=== PATIENT | female | born 1945 ===

== ENCOUNTER 2018-08-10 11:00 | Inpatient (IN) | payer OTHER ==
[2018-08-10] MEDS ORDERED: Sodium Chloride 0.9% 250 ML IV ONE (11:42)
--- NOTE | 2018-08-10 12:26 | RAD ---
Date of service: 08/10/2018 PROCEDURE: CHEST RADIOGRAPH, 1 VIEW HISTORY: chest pain COMPARISON: Chest radiographs 02/06/2017. FINDINGS: LUNGS: No interval pulmonary disease appreciated bilaterally. PLEURA: No pneumothorax or pleural fluid seen. CARDIOVASCULAR: Stable cardiomediastinal silhouette. No pulmonary vascular congestion. Aortic ectasis reiterated proven as not aneurysmal in chest CT 05/02/2018. A 4.7 cm ascending thoracic aorta is identified on prior chest CT 05/02/2018 however. OSSEOUS STRUCTURES: No significant abnormalities. VISUALIZED UPPER ABDOMEN: Normal. OTHER FINDINGS: None. IMPRESSION: No interval acute cardiopulmonary disease appreciated.
--- NOTE | 2018-08-10 12:32 | C.PDOC ---
History Of Present Illness 73 year old female, with no significant past medical history, presents to the ED after being sent by Dr. Anders for admission and further cardiac evaluation. Patient was in echo/stress when her echo reading showed aortic stenosis and d ilated aortic root with ascending aortic aneurism. Patient was about to undergo a stress test, but was advised by Dr. Anders to present to the ED for further evaluation. Patient states she has been experiencing shortness of breath, dyspnea on exertion, and chest pressure for around 6 months but did not inform her PMD until recently. Patient states she is currently asymptomatic. She denies fever, chills, nausea, vomiting. PMD: Dr. Banks Time Seen by Provider: 08/10/18 11:03 Chief Complaint (Nursing): Shortness Of Breath History Per: Patient, Family (daughter) History/Exam Limitations: no limitations Onset/Duration Of Symptoms: Days Current Symptoms Are (Timing): Better Quality: denies: "Pain" Associated Symptoms: denies: Fever, Chills Additional History Per: Patient Past Medical History Reviewed: Historical Data, Nursing Documentation, Vital Signs Vital Signs: Last Vital Signs Temp 98.8 F 08/10/18 11:09 Pulse 73 08/10/18 11:09 Resp 18 08/10/18 11:09 BP 131/88 08/10/18 11:09 Pulse Ox 98 08/10/18 11:09 - Medical History PMH: Anxiety (???), HTN, Hypercholesterolemia, Osteoporosis Surgical History: No Surg Hx Family History: States: Unknown Family Hx - Social History Hx Alcohol Use: No Hx Substance Use: No - Immunization History Hx Tetanus Toxoid Vaccination: No Hx Influenza Vaccination: Yes (08/02/2018) Hx Pneumococcal Vaccination: No Review Of Systems Constitutional: Negative for: Fever, Chills Cardiovascular: Positive for: Other (chest pressure ) Respiratory: Positive for: Shortness of Breath, SOB with Excertion Gastrointestinal: Negative for: Nausea, Vomiting Physical Exam - Physical Exam Appears: Non-toxic, No Acute Distress Skin: Warm, Dry, Pale (slight ) Head: Atraumatic, Normacephalic Eye(s): bilateral: Normal Inspection Oral Mucosa: Moist Neck: Supple Chest: Symmetrical, No Deformity, No Tenderness Cardiovascular: Rhythm Regular, No Murmur Respiratory: Normal Breath Sounds, No Rales, No Rhonchi, No Wheezing Gastrointestinal/Abdominal: Soft, No Tenderness, No Guarding, No Rebound, Other (obese) Extremity: Normal ROM, Capillary Refill (less than 2 seconds ), Other (pitting edema to bilateral lower extremities ) Pulses: Left Dorsalis Pedis: Normal, Right Dorsalis Pedis: Normal Neurological/Psych: Oriented x3, Normal Speech, Normal Cognition ED Course And Treatment - Laboratory Results Result Diagrams: 08/10/18 12:29 08/10/18 12:29 O2 Sat by Pulse Oximetry: 98 (on RA) Pulse Ox Interpretation: Normal Medical Decision Making Medical Decision Making: Impression: 73 year old female with c/o shortness of breath, dyspnea on exertion, chest pressure Plan: * bloodwork * CXR * EKG * CT Angio Chest * IV Fluids * reassess and disposition Progress: Bloodwork, CXR, CT Angio Chest, EKG ordered and reviewed. IV Fluids given. Spoke with Dr. Bloom, radiology, patient had a CTA in April 2018, wich showed the ascending aneurysm. Disposition Discussed With : Ezequiel Anders Doctor Will See Patient In The: Hospital Counseled Patient/Family Regarding: Studies Performed, Diagnosis - Disposition Disposition: HOSPITALIZED Disposition Time: 13:01 Condition: GUARDED Forms: [employer] (Lao) - POA Present On Arrival: None - Clinical Impression Clinical Impression: SOB (shortness of breath), Aortic stenosis, Ascending aortic aneurysm - Scribe Statement The provider has reviewed the documentation as recorded by the Scribe (Klarissa Brownlee) Provider Attestation: All medical record entries made by the Scribe were at my direction and personally dictated by me. I have reviewed the chart and agree that the record accurately reflects my personal performance of the history, physical exam, medical decision making, and the department course for this patient. I have also personally directed, reviewed, and agree with the discharge instructions and disposition. Decision To Admit - Pt Status Changed To: Hospital Disposition Of: Inpatient - Admit Certification Admit to Inpatient:: After my assessment, the patient will require hospitalization for at least two midnights. This is because of the severity of symptoms shown, intensity of services needed, and/or the medical risk in this patient being treated as an outpatient. - InPatient: Physician Admission Certification: I certify that this patient requires 2 or more midnights of care for the following reason:: YOU, SOB, AA - . Bed Request Type: Telemetry Patient Diagnosis: SOB (shortness of breath), Aortic stenosis, Ascending aortic aneurysm
[2018-08-10 12:33] LABS: BASO % 0.5 % (0.0-2.0); EOS # 0.1 K/uL (0.0-0.7); EOS % 1.1 % (0.0-4.0); HEMOGLOBIN 13.5 g/dL (11.0-16.0); LYMPH # 2.1 K/uL (1.0-4.3); MEAN CELL VOLUME 88.6 fL (81.0-99.0); MEAN CORPUSCULAR HEMOGLOBIN 30.4 pg (27.0-31.0); MEAN CORPUSCULAR HGB CONC 34.3 g/dL (33.0-37.0); MEAN PLATELET VOLUME 7.6 fL (7.2-11.7); MONO # 0.5 K/uL (0.0-0.8); MONO % 5.4 % (0.0-10.0); NEUT # 5.9 K/uL (1.8-7.0); RBC 4.45 Mil/uL (3.80-5.20); RED CELL DISTRIBUTION WIDTH 13.1 % (11.5-14.5); WHITE BLOOD COUNT 8.6 K/uL (4.8-10.8)
[2018-08-10 12:41] LABS: PROTHROMBIN TIME 11.4 SECONDS (9.7-12.2)
[2018-08-10 12:50] LABS: ALB/GLOB RATIO 1.2 (1.0-2.1)
[2018-08-10 13:04] LABS: TROPONIN I 0.014 ng/mL (0.00-0.120)
--- NOTE | 2018-08-10 19:11 | CP.PCM.HP ---
History of Present Illness - History of Present Illness History of Present Illness: Willy Benavideszulemayas PGY-1, H&P for Hospitalist CC: dyspnea on exertion, chest pressure This is a 73 year old Guatemalan-speaking female with PMH of dyslipidemia, osteoporosis, hypoglycemic episodes who was sent to the hospital from her card iologist's office for evaluation of aortic stenosis and ascending aortic aneurysm noted on echocardiogram. Pt reports dyspnea and chest pressure on exertion, worsening over the past 6 months. Chest pressure is described as a feeling of someone pushing on her midchest; no radiation, no chest pain, no neck pain. Symptoms are provoked by walking (sometimes less than one block), and alleviated by rest. Symptoms worsened last week, when she had a near-syncopal episode decreased as dizziness. Pt did not fall and hid not suffer any trauma at that time. She denies headache, fever, chills, paresthesias, blurry vision, tearing or ripping quality of chest pain, palpitations, abdominal pain, n/v/d, urinary complaints. She also endorses a history of unexplained bruising for as long as she can remember. Pt's sister in law, Luna Bermudez, is an central sterile tech in [place] and was informed of pt's admission . PMD: Darren Cardio: [place] PMH: dyslipidemia, osteoporosis, hypoglycemic episodes PSH: bunionectomy 2016, 2017, right breast cyst biopsy 2007 (benign) FHx: (+) history multiple family members with sudden cardiac (ages 50s- 60s) on Mother's side; Father of [place] at age 58, HTN, DM. No family history of cancers. Meds: Atorvastatin 10 mg daily, Indapamide 1.25 mg daily, Ralaxifine 60 mg daily, Fenofibrate 160 mg daily, Calcium, Vitamin D Allx: Seafood (shellfish) Social Hx: remote history of smoking at age 40 (2-3 cigs/day); social etoh use; no illicit drug use. Born in [place] immigrated to [facility] [place]. Preventative: Colonoscopy 3 years ago normal; Mammogram in february 2018 normal; papsmear 5 years ago normal Present on Admission - Present on Admission Any Indicators Present on Admission: No Review of Systems - Review of Systems All systems: reviewed and no additional remarkable complaints except (as per HPI) Past Patient History - Infectious Disease Hx of Infectious Diseases: None - Past Medical History & Family History Past Medical History?: Yes - Past Social History Smoking Status: Never Smoked - CARDIAC Hx Cardiac Disorders: Yes Hx Hypercholesterolemia: Yes Hx Hypertension: Yes - PULMONARY Hx Respiratory Disorders: No - NEUROLOGICAL Hx Neurological Disorder: Yes Hx Dizziness: Yes (last week) - HEENT Hx HEENT Problems: Yes Hx Cataracts: Yes Other/Comment: wear glasses for reading - RENAL Hx Chronic Kidney Disease: No - ENDOCRINE/METABOLIC Hx Endocrine Disorders: No - HEMATOLOGICAL/ONCOLOGICAL Hx Blood Disorders: No - INTEGUMENTARY Hx Dermatological Problems: No - MUSCULOSKELETAL/RHEUMATOLOGICAL Hx Falls: No - GASTROINTESTINAL Hx Gastrointestinal Disorders: No - GENITOURINARY/GYNECOLOGICAL Hx Genitourinary Disorders: No - PSYCHIATRIC Hx Substance Use: No - SURGICAL HISTORY Hx Surgeries: Yes Other/Comment: bilateral foot surgery. - ANESTHESIA Hx Anesthesia: Yes Hx Anesthesia Reactions: No Hx Malignant Hyperthermia: No Meds Allergies/Adverse Reactions: Allergies Allergy/AdvReac Type Severity Reaction Status Date / Time shellfish derived Allergy Verified 08/10/18 13:30 Physical Exam - Constitutional Appears: Non-toxic, No Acute Distress - Head Exam Head Exam: NORMAL INSPECTION, NORMOCEPHALIC - Eye Exam Eye Exam: EOMI, Normal appearance - ENT Exam ENT Exam: Mucous Membranes Moist - Neck Exam Neck exam: Positive for: Normal Inspection - Respiratory Exam Respiratory Exam: Clear to Auscultation Bilateral, NORMAL BREATHING PATTERN. absent: Decreased Breath Sounds, Rales, Rhonchi, Wheezes, Respiratory Distress - Cardiovascular Exam Cardiovascular Exam: REGULAR RHYTHM, +S1, +S2, Systolic Murmur ((+) 2/6 systolic crescendo-decrescendo murmur; radiating to the carotid) - GI/Abdominal Exam GI & Abdominal Exam: Normal Bowel Sounds, Soft. absent: Distended, Firm, Guarding, Rebound, Rigid, Tenderness - Extremities Exam Extremities exam: Positive for: normal inspection. Negative for: calf tenderness, pedal edema - Back Exam Back exam: NORMAL INSPECTION - Neurological Exam Neurological exam: Alert, Oriented x3 - Psychiatric Exam Psychiatric exam: Normal Affect, Normal Mood - Skin Skin Exam: Dry, Normal Color, Warm Additional comments: (+) healing ecchymosis to right forearm; nontender Results - Vital Signs Recent Vital Signs: Last Vital Signs Temp 98 F 08/10/18 16:46 Pulse 77 08/10/18 16:46 Resp 20 08/10/18 16:46 BP 128/69 08/10/18 16:46 Pulse Ox 97 08/10/18 16:46 - Labs Result Diagrams: 08/10/18 12:29 08/10/18 12:29 Labs: Laboratory Results - last 24 hr 08/10/18 08/10/18 08/10/18 12:29 12:29 12:29 WBC 8.6 RBC 4.45 Hgb 13.5 Hct 39.5 MCV 88.6 MCH 30.4 MCHC 34.3 RDW 13.1 Plt Count 309 MPV 7.6 Neut % (Auto) 69.0 Lymph % (Auto) 24.0 Mitchell % (Auto) 5.4 Eos % (Auto) 1.1 Baso % (Auto) 0.5 Neut # (Auto) 5.9 Lymph # (Auto) 2.1 Mitchell # (Auto) 0.5 Eos # (Auto) 0.1 Baso # (Auto) 0.0 PT 11.4 INR 1.0 APTT 35 H Sodium 143 Potassium 3.7 Chloride 103 Carbon Dioxide 28 Anion Gap 15 BUN 17 Creatinine 1.1 Est GFR ( Amer) 59 Est GFR (Non-Af Amer) 48 Random Glucose 116 H Calcium 10.0 Total Bilirubin 0.7 AST 18 ALT 24 Alkaline Phosphatase 68 Troponin I 0.0140 NT-Pro-B Natriuret Pep 457 Total Protein 7.5 Albumin 4.0 Globulin 3.5 Albumin/Globulin Ratio 1.2 Assessment & Plan - Assessment and Plan (Free Text) Assessment: This is a 73 year old Guatemalan-speaking female with PMH of dyslipidemia, osteoporosis, hypoglycemic episodes who was sent to the hospital from her brake drum molder's office for evaluation of aortic stenosis and ascending aortic aneurysm noted on echocardiogram. Pt reports dyspnea and chest pressure on exertion, worsening over the past 6 months. C Plan: Near-syncopal episode with chest pressure and dyspnea on exertion; likely due to Aortic stenosis -Dr. anders noted aortic stenosis on outpatient echocardiogram -cxr shows no interval acute cardiopulmonary disease -troponin x1 is normal -bnp is 457 -f/u orthostatic BPs -Cardiology, Dr. Anders, consulted Ascending aortic aneurysm -Dr. anders noted 4.5cm by 4.7cm ascending aortic aneursym noted on outpatient echocardiogram -chest ct 04/2018 shows 4.5cm by 4.7cm ascending aortic aneursym -pt is hemodynamically stable -BPs have been 120s-130s/60s-80s -f/u PT/PTT/INR -f/u Dr. chago acuña Osteoporosis - continue home calcium, vitamin D, raloxifene - calcium is 10.0 on admission - f/u vitamin D 25-oh Hx of dyslipidemia -will start crestor 20 mg PO QHS -f/u lipid panel Hx of hypoglycemia -glucose is 116 on admission -accucheck ACHS -f/u HgbA1c, c-peptide, TSH, T4 PPX/Diet - protonix 20 mg PO daily for GI - lovenox 40 mg SC daily for VTE ppx - HHD Case was reviewed and discussed with attending, Dr. Margarita Wells PGY-1
[2018-08-11 07:10] LABS: BASO % 0.4 % (0.0-2.0); EOS # 0.1 K/uL (0.0-0.7); EOS % 1.4 % (0.0-4.0); HEMOGLOBIN 12.8 g/dL (11.0-16.0); LYMPH # 2.2 K/uL (1.0-4.3); LYMPH % 33.5 % (20.0-40.0); MEAN CELL VOLUME 89.3 fL (81.0-99.0); MEAN CORPUSCULAR HEMOGLOBIN 29.9 pg (27.0-31.0); MEAN CORPUSCULAR HGB CONC 33.5 g/dL (33.0-37.0); MEAN PLATELET VOLUME 7.9 fL (7.2-11.7); MONO # 0.5 K/uL (0.0-0.8); MONO % 7.5 % (0.0-10.0); NEUT # 3.8 K/uL (1.8-7.0); NEUT % 57.2 % (50.0-75.0); RBC 4.26 Mil/uL (3.80-5.20); RED CELL DISTRIBUTION WIDTH 13.3 % (11.5-14.5); WHITE BLOOD COUNT 6.7 K/uL (4.8-10.8)
[2018-08-11 07:19] LABS: INR 1.1; PROTHROMBIN TIME 11.9 SECONDS (9.7-12.2)
[2018-08-11 07:53] LABS: ALB/GLOB RATIO 1.1 (1.0-2.1); ALBUMIN 3.5 g/dL (3.5-5.0); CALCIUM 9.4 mg/dl (8.6-10.4)
[2018-08-11] MEDS ORDERED: INDAPAMIDE 1.25 MG PO SCH (10:00)
[2018-08-11] MEDS: Pantoprazole 20 mg EC Tab PO SCH (10:18)
[2018-08-11] MEDS: Enoxaparin 40 mg Syringe SC SCH (10:18)
--- NOTE | 2018-08-11 19:09 | CP.PCM.PN ---
Subjective - Date & Time of Evaluation Date of Evaluation: 08/11/18 Time of Evaluation: 10:00 - Subjective Subjective: PGY2 Medicine Note for Dr. Valencia Patient seen and examined this morning at bedside. No acute events overnight. Patient is resting comfortably in bed without complaints. She reports not getting up and walking for fear for becoming lightheaded or dizzy. Patient is tolerating her diet and denies any pain. Patient has no other complaints at this time. Objective - Vital Signs/Intake and Output Vital Signs (last 24 hours): Temp Pulse Resp BP Pulse Ox 97.6 F 72 20 105/64 96 08/11/18 15:16 08/11/18 15:16 08/11/18 15:16 08/11/18 15:16 08/11/18 15:16 - Medications Medications: Current Medications Diphenhydramine HCl (Benadryl) 50 mg PO ONCE ONE Stop: 08/12/18 09:01 Enoxaparin Sodium (Lovenox) 40 mg SC DAILY [facility] Last Admin: 08/11/18 10:18 Dose: 40 mg Fenofibrate (Tricor) 145 mg PO DAILY [facility] Last Admin: 08/11/18 10:18 Dose: 145 mg Home Med (Indapamide [Lozol]) 1.25 mg PO DAILY [facility] Pantoprazole Sodium (Protonix Ec Tab) 20 mg PO DAILY [facility] Last Admin: 08/11/18 10:18 Dose: 20 mg Prednisone (Prednisone Tab) 50 mg PO ONCE ONE Stop: 08/11/18 22:01 Prednisone (Prednisone Tab) 50 mg PO ONCE ONE Stop: 08/12/18 08:01 Prednisone (Prednisone Tab) 50 mg PO ONCE ONE Stop: 08/12/18 02:01 Raloxifene HCl (Evista) 60 mg PO DAILY [facility] Last Admin: 08/11/18 10:18 Dose: 60 mg Rosuvastatin Calcium (Crestor) 20 mg PO HS [facility] Last Admin: 08/10/18 21:08 Dose: 20 mg - Labs Labs: 08/11/18 07:03 08/11/18 07:03 PT 11.9 SECONDS (9.7-12.2) 08/11/18 07:03 INR 1.1 08/11/18 07:03 APTT 30 SECONDS (21-34) D 08/11/18 07:03 - Constitutional Appears: Non-toxic, No Acute Distress - Head Exam Head Exam: ATRAUMATIC, NORMOCEPHALIC - Eye Exam Eye Exam: Normal appearance - ENT Exam ENT Exam: Mucous Membranes Moist - Neck Exam Neck Exam: Full ROM - Respiratory Exam Respiratory Exam: NORMAL BREATHING PATTERN. absent: Accessory Muscle Use, Rales, Rhonchi, Wheezes, Respiratory Distress - Cardiovascular Exam Cardiovascular Exam: REGULAR RHYTHM, +S1, Murmur (systolic murmur - crescendo-decrescendo, radiation to carotids) - GI/Abdominal Exam GI & Abdominal Exam: Soft. absent: Distended, Firm, Guarding, Rigid, Tenderness, Rebound - Extremities Exam Extremities Exam: absent: Calf Tenderness, Pedal Edema - Neurological Exam Neurological Exam: Alert, Awake, Oriented x3 - Psychiatric Exam Psychiatric exam: Normal Affect, Normal Mood - Skin Skin Exam: Dry, Warm Assessment and Plan - Assessment and Plan (Free Text) Plan: Near-syncopal episode with chest pressure and dyspnea on exertion; likely due to Aortic stenosis - Cardiology, Dr. Longoria, consulted - Dr. longoria noted aortic stenosis on outpatient echocardiogram - CXR shows no interval acute cardiopulmonary disease - troponin x1 is normal - bnp is 457 Ascending aortic aneurysm - Dr. longoria noted ascending aortic aneursym noted on outpatient echocardiogram * Chest CT 04/2018 shows 4.5cm by 4.7cm ascending aortic aneursym * Dr. Longoria requesting repeat CT Chest angiography to evaluate ascending aortic aneursym. * Patient will needed to be pre-treated for CT angio due to iodine allergy. Patient will be treated per Radiology protocol: * Prednisone 50mg PO 13 hours prior, 7 hours prior and 1 hour prior * Benadryl 50mg PO or IM [address] * CT scheduled for 10am - pt is hemodynamically stable -BPs have been 120s-100s/60s-80s -f/u Dr. longoria recs Osteoporosis - continue home calcium, vitamin D, raloxifene - calcium is 10.0 on admission * 9.4 today - Vitamin D (08/11): 46.5 Hx of dyslipidemia - crestor 20 mg PO QHS --> decrease dose due to CKD stage 3 - continue home Fenofibrate 145mg PO daily - lipid panel (08/11): * LDL 86 * HDL 36 * Trigly 113 Hx of hypoglycemia - glucose is 116 on admission - accucheck ACHS - Hgb A1c, c-peptide pending - TSH 1.72 - free T4 1.23 PPX/Diet - protonix 20 mg PO daily for GI - lovenox 40 mg SC daily for VTE ppx - HHD Case discussed with Dr. Annie Augustin Emelia PGY2
--- NOTE | 2018-08-11 22:37 | CP.PCM.CON ---
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 Pt reports dyspnea and chest pressure on exertion, worsening over the past 6 months. Chest pressure is described as a feeling of someone pushing on her midchest; no radiation, no chest pain, no neck pain. Symptoms are provoked by walking (sometimes less than one block), and alleviated by rest. Symptoms worsened last week, when she had a near-syncopal episode decreased as dizziness. Pt did not fall and hid not suffer any trauma at that time. She denies headache, fever, chills, paresthesias, blurry vision, tearing or ripping quality of chest pain, palpitations, abdominal pain, n/v/d, urinary complaints. She also endorses a history of unexplained bruising for as long as she can remember. Pt's sister in law, Luna Bermudez, is an head bander and liner operator in [place] and was informed of pt's admission . PMD: Darren PMH: dyslipidemia, osteoporosis, hypoglycemic episodes PSH: bunionectomy 2016, 2017, right breast cyst biopsy 2007 (benign) FHx: (+) history multiple family members with sudden cardiac (ages 50s-60 s) on Mother's side; Father of AL at age 58, HTN, DM. No family history of cancers. Meds: Atorvastatin 10 mg daily, Indapamide 1.25 mg daily, Ralaxifine 60 mg daily, Fenofibrate 160 mg daily, Calcium, Vitamin D Allx: Seafood (shellfish) Social Hx: remote history of smoking at age 40 (2-3 cigs/day); social etoh use; no illicit drug use. Born in [place] immigrated to [facility] 2001. Preventative: Colonoscopy 3 years ago normal; Mammogram in february 2018 normal; papsmear 5 years ago normal Present on Admission - Present on Admission Any Indicators Present on Admission: No Review of Systems - Review of Systems All systems: reviewed and no additional remarkable complaints except (as per HPI) Past Patient History - Infectious Disease Hx of Infectious Diseases: None - Past Medical History & Family History Past Medical History?: Yes - Past Social History Smoking Status: Never Smoked - CARDIAC Hx Cardiac Disorders: Yes Hx Hypercholesterolemia: Yes Hx Hypertension: Yes - PULMONARY Hx Respiratory Disorders: No - NEUROLOGICAL Hx Neurological Disorder: Yes Hx Dizziness: Yes (last week) - HEENT Hx HEENT Problems: Yes Hx Cataracts: Yes Other/Comment: wear glasses for reading - RENAL Hx Chronic Kidney Disease: No - ENDOCRINE/METABOLIC Hx Endocrine Disorders: No - HEMATOLOGICAL/ONCOLOGICAL Hx Blood Disorders: No - INTEGUMENTARY Hx Dermatological Problems: No - MUSCULOSKELETAL/RHEUMATOLOGICAL Hx Falls: No - GASTROINTESTINAL Hx Gastrointestinal Disorders: No - GENITOURINARY/GYNECOLOGICAL Hx Genitourinary Disorders: No - PSYCHIATRIC Hx Substance Use: No - SURGICAL HISTORY Hx Surgeries: Yes Other/Comment: bilateral foot surgery. - ANESTHESIA Hx Anesthesia: Yes Hx Anesthesia Reactions: No Hx Malignant Hyperthermia: No Meds Allergies/Adverse Reactions: Allergies Allergy/AdvReac Type Severity Reaction Status Date / Time shellfish derived Allergy Verified 08/10/18 13:30 Physical Exam - Constitutional Appears: Non-toxic, No Acute Distress - Head Exam Head Exam: NORMAL INSPECTION, NORMOCEPHALIC - Eye Exam Eye Exam: EOMI, Normal appearance - ENT Exam ENT Exam: Mucous Membranes Moist - Neck Exam Neck exam: Positive for: Normal Inspection - Respiratory Exam Respiratory Exam: Clear to Auscultation Bilateral, NORMAL BREATHING PATTERN. absent: Decreased Breath Sounds, Rales, Rhonchi, Wheezes, Respiratory Distress - Cardiovascular Exam Cardiovascular Exam: REGULAR RHYTHM, +S1, +S2, Systolic Murmur ((+) 2/6 systolic crescendo-decrescendo murmur; radiating to the carotid) - GI/Abdominal Exam GI & Abdominal Exam: Normal Bowel Sounds, Soft. absent: Distended, Firm, Guarding, Rebound, Rigid, Tenderness - Extremities Exam Extremities exam: Positive for: normal inspection. Negative for: calf tenderness, pedal edema - Back Exam Back exam: NORMAL INSPECTION - Neurological Exam Neurological exam: Alert, Oriented x3 - Psychiatric Exam Psychiatric exam: Normal Affect, Normal Mood - Skin Skin Exam: Dry, Normal Color, Warm Additional comments: (+) healing ecchymosis to right forearm; nontender Results - Vital Signs Recent Vital Signs: Last Vital Signs Temp 98 F 08/10/18 16:46 Pulse 77 08/10/18 16:46 Resp 20 08/10/18 16:46 BP 128/69 08/10/18 16:46 Pulse Ox 97 08/10/18 16:46 - Labs Result Diagrams: 08/10/18 12:29 08/10/18 12:29 Labs: Laboratory Results - last 24 hr 08/10/18 08/10/18 08/10/18 12:29 12:29 12:29 WBC 8.6 RBC 4.45 Hgb 13.5 Hct 39.5 MCV 88.6 MCH 30.4 MCHC 34.3 RDW 13.1 Plt Count 309 MPV 7.6 Neut % (Auto) 69.0 Lymph % (Auto) 24.0 Bleckley % (Auto) 5.4 Eos % (Auto) 1.1 Baso % (Auto) 0.5 Neut # (Auto) 5.9 Lymph # (Auto) 2.1 Bleckley # (Auto) 0.5 Eos # (Auto) 0.1 Baso # (Auto) 0.0 PT 11.4 INR 1.0 APTT 35 H Sodium 143 Potassium 3.7 Chloride 103 Carbon Dioxide 28 Anion Gap 15 BUN 17 Creatinine 1.1 Est GFR ( Amer) 59 Est GFR (Non-Af Amer) 48 Random Glucose 116 H Calcium 10.0 Total Bilirubin 0.7 AST 18 ALT 24 Alkaline Phosphatase 68 Troponin I 0.0140 NT-Pro-B Natriuret Pep 457 Total Protein 7.5 Albumin 4.0 Globulin 3.5 Albumin/Globulin Ratio 1.2 Assessment & Plan - Assessment and Plan (Free Text) Assessment: This is a 73 year old Guinean-speaking female with PMH of dyslipidemia, osteoporosis, hypoglycemic episodes who was 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 Pt reports dyspnea and chest pressure on exertion, worsening over the past 6 months. C Plan: Near-syncopal episode with chest pressure and dyspnea on exertion; likely due to Aortic stenosis -Dr. longoria noted aortic stenosis on outpatient echocardiogram -cxr shows no interval acute cardiopulmonary disease -troponin x1 is normal -bnp is 457 -f/u orthostatic BPs -Cardiology, Dr. Longoria, consulted Ascending aortic aneurysm -Dr. longoria noted 4.5cm by 4.7cm ascending aortic aneursym noted on outpatient echocardiogram -chest ct 04/2018 shows 4.5cm by 4.7cm ascending aortic aneursym -pt is hemodynamically stable -BPs have been 120s-130s/60s-80s -f/u PT/PTT/INR -f/u Dr. von acuña Osteoporosis - continue home calcium, vitamin D, raloxifene - calcium is 10.0 on admission - f/u vitamin D 25-oh Hx of dyslipidemia -will start crestor 20 mg PO QHS -f/u lipid panel Hx of hypoglycemia -glucose is 116 on admission -accucheck ACHS -f/u HgbA1c, c-peptide, TSH, T4 PPX/Diet - protonix 20 mg PO daily for GI - lovenox 40 mg SC daily for VTE ppx - HHD Patient for Cardiac Cath Monday Plan for further mgt after CT and Cath reports available Past Patient History - Infectious Disease Hx of Infectious Diseases: None - Past Medical History & Family History Past Medical History?: Yes - Past Social History Smoking Status: Never Smoked - CARDIAC Hx Cardiac Disorders: Yes Hx Hypercholesterolemia: Yes Hx Hypertension: Yes - PULMONARY Hx Respiratory Disorders: No - NEUROLOGICAL Hx Neurological Disorder: Yes Hx Dizziness: Yes (last week) - HEENT Hx HEENT Problems: Yes Hx Cataracts: Yes Other/Comment: wear glasses for reading - RENAL Hx Chronic Kidney Disease: No - ENDOCRINE/METABOLIC Hx Endocrine Disorders: No - HEMATOLOGICAL/ONCOLOGICAL Hx Blood Disorders: No - INTEGUMENTARY Hx Dermatological Problems: No - MUSCULOSKELETAL/RHEUMATOLOGICAL Hx Falls: No - GASTROINTESTINAL Hx Gastrointestinal Disorders: No - GENITOURINARY/GYNECOLOGICAL Hx Genitourinary Disorders: No - PSYCHIATRIC Hx Substance Use: No - SURGICAL HISTORY Hx Surgeries: Yes Other/Comment: bilateral foot surgery. - ANESTHESIA Hx Anesthesia: Yes Hx Anesthesia Reactions: No Hx Malignant Hyperthermia: No Meds Allergies/Adverse Reactions: Allergies Allergy/AdvReac Type Severity Reaction Status Date / Time shellfish derived Allergy Verified 08/10/18 13:30 - Medications Medications: Current Medications Diphenhydramine HCl (Benadryl) 50 mg PO ONCE ONE Stop: 08/12/18 09:01 Enoxaparin Sodium (Lovenox) 40 mg SC DAILY [facility] Last Admin: 08/11/18 10:18 Dose: 40 mg Fenofibrate (Tricor) 145 mg PO DAILY [facility] Last Admin: 08/11/18 10:18 Dose: 145 mg Home Med (Indapamide [Lozol]) 1.25 mg PO DAILY [facility] Pantoprazole Sodium (Protonix Ec Tab) 20 mg PO DAILY [facility] Last Admin: 08/11/18 10:18 Dose: 20 mg Prednisone (Prednisone Tab) 50 mg PO ONCE ONE Stop: 08/12/18 09:01 Prednisone (Prednisone Tab) 50 mg PO ONCE ONE Stop: 08/12/18 03:01 Raloxifene HCl (Evista) 60 mg PO DAILY [facility] Last Admin: 08/11/18 10:18 Dose: 60 mg Rosuvastatin Calcium (Crestor) 5 mg PO [facility] Results - Vital Signs Recent Vital Signs: Last Vital Signs Temp 97.6 F 08/11/18 15:16 Pulse 72 08/11/18 15:16 Resp 20 08/11/18 15:16 BP 105/64 08/11/18 15:16 Pulse Ox 96 08/11/18 15:16 - Labs Result Diagrams: 08/11/18 07:03 08/11/18 07:03 Labs: Laboratory Results - last 24 hr 08/11/18 08/11/18 08/11/18 06:15 07:03 07:03 WBC 6.7 RBC 4.26 Hgb 12.8 Hct 38.1 MCV 89.3 MCH 29.9 MCHC 33.5 RDW 13.3 Plt Count 308 MPV 7.9 Neut % (Auto) 57.2 Lymph % (Auto) 33.5 Bleckley % (Auto) 7.5 Eos % (Auto) 1.4 Baso % (Auto) 0.4 Neut # (Auto) 3.8 Lymph # (Auto) 2.2 Bleckley # (Auto) 0.5 Eos # (Auto) 0.1 Baso # (Auto) 0.0 PT 11.9 INR 1.1 APTT 30 D Sodium Potassium Chloride Carbon Dioxide Anion Gap BUN Creatinine Est GFR ( Amer) Est GFR (Non-Af Amer) POC Glucose (mg/dL) 118 H Random Glucose Calcium Total Bilirubin AST ALT Alkaline Phosphatase Total Protein Albumin Globulin Albumin/Globulin Ratio Triglycerides Cholesterol LDL Cholesterol Direct HDL Cholesterol 25-OH Vitamin D Total Free T4 TSH 3rd Generation 08/11/18 08/11/18 08/11/18 07:03 07:03 07:03 WBC RBC Hgb Hct MCV MCH MCHC RDW Plt Count MPV Neut % (Auto) Lymph % (Auto) Bleckley % (Auto) Eos % (Auto) Baso % (Auto) Neut # (Auto) Lymph # (Auto) Bleckley # (Auto) Eos # (Auto) Baso # (Auto) PT INR APTT Sodium 144 Potassium 3.6 Chloride 106 Carbon Dioxide 24 Anion Gap 17 BUN 19 H Creatinine 1.1 Est GFR ( Amer) 59 Est GFR (Non-Af Amer) 48 POC Glucose (mg/dL) Random Glucose 115 H Calcium 9.4 Total Bilirubin 0.6 AST 17 ALT 16 Alkaline Phosphatase 59 Total Protein 6.7 Albumin 3.5 Globulin 3.2 Albumin/Globulin Ratio 1.1 Triglycerides 113 Cholesterol 146 LDL Cholesterol Direct 86 HDL Cholesterol 36 25-OH Vitamin D Total 46.5 Free T4 1.23 TSH 3rd Generation 1.72 08/11/18 08/11/18 16:54 21:07 WBC RBC Hgb Hct MCV MCH MCHC RDW Plt Count MPV Neut % (Auto) Lymph % (Auto) Bleckley % (Auto) Eos % (Auto) Baso % (Auto) Neut # (Auto) Lymph # (Auto) Bleckley # (Auto) Eos # (Auto) Baso # (Auto) PT INR APTT Sodium Potassium Chloride Carbon Dioxide Anion Gap BUN Creatinine Est GFR ( Amer) Est GFR (Non-Af Amer) POC Glucose (mg/dL) 103 98 Random Glucose Calcium Total Bilirubin AST ALT Alkaline Phosphatase Total Protein Albumin Globulin Albumin/Globulin Ratio Triglycerides Cholesterol LDL Cholesterol Direct HDL Cholesterol 25-OH Vitamin D Total Free T4 TSH 3rd Generation
[2018-08-12 07:30] LABS: BASO % 0.1 % (0.0-2.0); HEMOGLOBIN 12.7 g/dL (11.0-16.0); LYMPH # 0.7 K/uL (1.0-4.3); LYMPH % 9.9 % (20.0-40.0); MEAN CELL VOLUME 88.2 fL (81.0-99.0); MEAN PLATELET VOLUME 8.2 fL (7.2-11.7); MONO # 0.1 K/uL (0.0-0.8); MONO % 1.2 % (0.0-10.0); NEUT # 6.1 K/uL (1.8-7.0); NEUT % 88.8 % (50.0-75.0); PLATELET COUNT 314 K/uL (130-400); RBC 4.24 Mil/uL (3.80-5.20); RED CELL DISTRIBUTION WIDTH 13.1 % (11.5-14.5); WHITE BLOOD COUNT 6.8 K/uL (4.8-10.8)
[2018-08-12 07:45] LABS: ALB/GLOB RATIO 1.1 (1.0-2.1); ALBUMIN 3.5 g/dL (3.5-5.0); CALCIUM 9.4 mg/dl (8.6-10.4)
[2018-08-12 09:22] LABS: BANDS 1 % (0-2); LYMPHOCYTE 12 % (20-40); MONOCYTE 1 % (0-10); NEUTROPHIL 86 % (50-75); TOTAL CELLS COUNTED 100
[2018-08-12 09:23] LABS: ANISOCYTOSIS SLIGHT; PLATELET ESTIMATE NORMAL (NORMAL)
[2018-08-12 09:24] LABS: LARGE PLATELETS PRESENT
[2018-08-12] MEDS ORDERED: Iodixanol 320 MG/ML 100 ML BOTTLE IV ONE (09:48)
[2018-08-12] MEDS: Enoxaparin 40 mg Syringe SC SCH (09:59)
[2018-08-12] MEDS: Pantoprazole 20 mg EC Tab PO SCH (09:59)
--- NOTE | 2018-08-12 13:44 | CT ---
PROCEDURE: CT Angiography Chest, Abdomen and Pelvis with and without intravenous contrast HISTORY: aortic aneurysm COMPARISON: None. TECHNIQUE: Contiguous axial images of the chest, abdomen and pelvis were obtained in the phase of aortic enhancement. A noncontrast enhanced CT of the chest was also obtained to evaluate for possible intramural thrombus. Coronal and sagittal reformats were generated. IV dose administered: 100 cc Visipaque Radiation dose: Total exam DLP = 680.88 mGy-cm. This CT exam was performed using one or more of the following dose reduction techniques: Automated exposure control, adjustment of the mA and/or kV according to patient size, and/or use of iterative reconstruction technique.. FINDINGS: CT ANGIOGRAPHY OF THE CHEST WITH & WITHOUT CONTRAST: AORTA (CHEST AND ABDOMEN): Th there is mild aneurysmal dilatation of the ascending thoracic aorta which measures of over 4 point 2 cm in greatest diameter. Descending thoracic aorta measures approximately 2.2 cm.. The the no evidence of dissection or upper. Pulmonary trunk measures approximately 2.3 cm. No evidence of large central pulmonary embolus. The abdominal aorta are unremarkable, without aneurysm, dissection or rupture. No intramural thrombus identified in the thoracic aorta on the non-contrast ct of the chest. The. There is a variant of the celiac axis with apparent separate origins of the common hepatic, left gastric and splenic arteries.. The superior, superior mesenteric artery, inferior mesenteric artery widely patent. Some minor calcified plaque changes seen along the origin of the right renal artery, left renal artery and extending along the inferior abdominal aorta. The renal arteries are widely patent. The visualized proximal pelvic arteries appear patent. LUNGS: Again noted is a small 7 mm ground-glass nodule left lung apex. Mild passive/dependent type atelectasis both posterior lower lung zones. MEDIASTINUM: Heart size within range of normal. No significant pericardial effusion. See above discussion for additional findings regarding the great vessels including the aorta and pulmonary arteries.. LYMPH NODES: Few small nonspecific mediastinal lymph nodes. Central airways midline and patent. There are no large central endoluminal lesions. PLEURA: Unremarkable. No pneumothorax. No pleural fluid. BONES: Moderate multilevel spondylosis of the thoracic spine. No acute compression fractures. OTHER FINDINGS: None. CT ANGIOGRAPHY OF THE ABDOMEN AND PELVIS WITH CONTRAST: LIVER: Unremarkable. No gross lesion or ductal dilatation. GALLBLADDER AND BILE DUCTS: Unremarkable. PANCREAS: Unremarkable. No gross lesion or ductal dilatation. SPLEEN: Unremarkable. ADRENALS: There is a left adrenal mass which measures approximately 2.9 x 1.9 cm and exhibits Hounsfield units in the upper 20s ranging up to the mid mid 40s. Hounsfield units are not consistent with adenoma and therefore follow-up MRI of the adrenal glands recommended for further evaluation. KIDNEYS AND URETERS: Unremarkable. No hydronephrosis. No solid mass. VASCULATURE: See above discussion for additional details. No aortic abdominal aneurysm. STOMACH AND BOWEL: Small to medium size hiatal hernia. Stomach is incompletely distended with mild thick-walled appearance. Visualized loops of small bowel exhibit normal contour and caliber. No evidence of acute mechanical small bowel obstruction. Stool and air seen throughout the large bowel APPENDIX: Normal appendix. PERITONEUM: Unremarkable. No free fluid. No free air. LYMPH NODES: Unremarkable. No enlarged lymph nodes. BLADDER: Not visualized REPRODUCTIVE: Not visualized. BONES: Moderate multilevel degenerative spondylosis of the lumbosacral spine. Minor chronic anterior stature loss of the L1 and L2 segments. There also a mild dextroscoliosis centered in the lower lumbar region. OTHER FINDINGS: None. IMPRESSION: There is mild aneurysmal dilatation of the ascending thoracic aorta as described. Mild passive/dependent type atelectasis both posterior lower lung mesa. 7 mm ground-glass nodule again seen left lung apex
--- NOTE | 2018-08-12 17:42 | CP.PCM.PN ---
<Charli Kapoor - Last Filed: 08/12/18 20:22> Subjective - Date & Time of Evaluation Date of Evaluation: 08/12/18 Time of Evaluation: 10:15 - Subjective Subjective: PGY2 Medicine Note for Dr. Mott Patient seen and examined this morning at bedside this morning. Patient is feeling well without chest pain or shortness of breath at rest. She is still experiencing chest pressure in the center of her chest and lightheadedness when she attempts to walk even short distances. She is currently being pre-treated for her shellfish allergy prior to a Chest CT angio this morning. Patient has no other complaints at this time. Denies fevers, chills, nausea, vomiting, diarrhea, constipation, numbness or tingling. Objective - Vital Signs/Intake and Output Vital Signs (last 24 hours): Temp Pulse Resp BP Pulse Ox 97.9 F 80 20 116/73 97 08/12/18 15:02 08/12/18 15:02 08/12/18 15:02 08/12/18 15:02 08/12/18 15:02 Intake and Output: 08/12/18 08/12/18 06:59 18:59 Intake Total 240 Balance 240 - Medications Medications: Current Medications Enoxaparin Sodium (Lovenox) 40 mg SC DAILY [facility] Last Admin: 08/12/18 09:59 Dose: 40 mg Fenofibrate (Tricor) 145 mg PO DAILY [facility] Last Admin: 08/12/18 10:01 Dose: 145 mg Home Med (Indapamide [Lozol]) 1.25 mg PO DAILY [facility] Pantoprazole Sodium (Protonix Ec Tab) 20 mg PO DAILY [facility] Last Admin: 08/12/18 09:59 Dose: 20 mg Raloxifene HCl (Evista) 60 mg PO DAILY [facility] Last Admin: 08/12/18 10:01 Dose: 60 mg Rosuvastatin Calcium (Crestor) 5 mg PO HS [facility] Last Admin: 08/11/18 22:40 Dose: 5 mg - Labs Labs: 08/12/18 07:16 08/12/18 07:16 PT 11.9 SECONDS (9.7-12.2) 08/11/18 07:03 INR 1.1 08/11/18 07:03 APTT 30 SECONDS (21-34) D 08/11/18 07:03 - Additional Findings Additional findings: - Constitutional Appears: Non-toxic, No Acute Distress - Head Exam Head Exam: ATRAUMATIC, NORMOCEPHALIC - Eye Exam Eye Exam: Normal appearance - ENT Exam ENT Exam: Mucous Membranes Moist - Neck Exam Neck Exam: Full ROM - Respiratory Exam Respiratory Exam: NORMAL BREATHING PATTERN. absent: Accessory Muscle Use, Ral es, Rhonchi, Wheezes, Respiratory Distress - Cardiovascular Exam Cardiovascular Exam: REGULAR RHYTHM, +S1, Murmur (systolic murmur - crescendo- decrescendo, radiation to carotids) - GI/Abdominal Exam GI & Abdominal Exam: Soft. absent: Distended, Firm, Guarding, Rigid, Tenderness, Rebound - Extremities Exam Extremities Exam: absent: Calf Tenderness, Pedal Edema - Neurological Exam Neurological Exam: Alert, Awake, Oriented x3 - Psychiatric Exam Psychiatric exam: Normal Affect, Normal Mood - Skin Skin Exam: Dry, Warm Assessment and Plan - Assessment and Plan (Free Text) Plan: Near-syncopal episode with chest pressure and dyspnea on exertion; likely due to Aortic stenosis - Cardiology, Dr. Anders, consulted * Cardiac Cath scheduled for 4pm * NPO past lunch * Patient will most likely need TAVR procedure * f/u additional recs after CT and Cath reports - Dr. anders noted aortic stenosis on outpatient echocardiogram - CXR shows no interval acute cardiopulmonary disease - troponin x1 is normal - bnp is 457 Ascending aortic aneurysm - Dr. anders noted ascending aortic aneursym noted on outpatient echocardiogram * Chest CT 04/2018 shows 4.5cm by 4.7cm ascending aortic aneursym * Chest CT 08/12/18: * There is mild aneurysmal dilatation of the ascending thoracic aorta which measures of over 4 point 2 cm in greatest diameter. Descending thoracic aorta measures approximately 2.2 cm. The the no evidence of dissection or upper. Pulmonary trunk measures approximately 2.3 cm. No evidence of large central pulmonary embolus. * The abdominal aorta are unremarkable, without aneurysm, dissection or rupture. No intramural thrombus identified in the thoracic aorta on the non-contrast ct of the chest. 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 The superior, supe rior mesenteric artery, inferior mesenteric artery widely patent. Some minor calcified plaque changes seen along the origin of the right renal artery, left renal artery and extending along the inferior abdominal aorta. The renal arteries are widely patent. - BPs have been 120s-100s/60s-80s - f/u Dr. von acuña Osteoporosis - continue home calcium, vitamin D, raloxifene - calcium is 10.0 on admission * 9.4 today - Vitamin D (08/11): 46.5 Hx of dyslipidemia - crestor 5 mg PO QHS - continue home Fenofibrate 145mg PO daily - lipid panel (08/11): * LDL 86 * HDL 36 * Trigly 113 Hx of hypoglycemia - glucose is 116 on admission - accucheck ACHS - Hgb A1c, c-peptide pending - TSH 1.72 - free T4 1.23 PPX/Diet - protonix 20 mg PO daily for GI - lovenox 40 mg SC daily for VTE ppx - HHD Case discussed with Dr. Tiera Kapoor PGY2 <Eden Mott V - Last Filed: 08/13/18 17:55> Objective - Vital Signs/Intake and Output Vital Signs (last 24 hours): Temp Pulse Resp BP Pulse Ox 97.3 F L 95 H 18 107/69 98 08/13/18 07:00 08/13/18 07:10 08/13/18 07:00 08/13/18 07:00 08/13/18 07:00 Intake and Output: 08/13/18 08/13/18 06:59 18:59 Intake Total 120 Balance 120 - Medications Medications: Current Medications Acetylcysteine (Acetylcysteine 20%) 3 ml PO BID [facility] Stop: 08/13/18 18:01 Enoxaparin Sodium (Lovenox) 30 mg SC DAILY [facility] Last Admin: 08/13/18 12:48 Dose: 30 mg Fenofibrate (Tricor) 48 mg PO DAILY [facility] Home Med (Indapamide [Lozol]) 1.25 mg PO DAILY [facility] Sodium Chloride (Sodium Chloride 0.9%) 1,000 mls @ 50 mls/hr IV .Q20H [facility] Last Admin: 08/13/18 11:23 Dose: 50 mls/hr Pantoprazole Sodium (Protonix Ec Tab) 20 mg PO DAILY [facility] Last Admin: 08/13/18 10:30 Dose: 20 mg Raloxifene HCl (Evista) 60 mg PO DAILY [facility] Last Admin: 10/08/18 10:30 Dose: 60 mg Rosuvastatin Calcium (Crestor) 5 mg PO HS [facility] Last Admin: 08/12/18 21:49 Dose: 5 mg - Labs Labs: 08/13/18 07:34 08/13/18 07:34 PT 11.5 SECONDS (9.7-12.2) 08/13/18 07:34 INR 1.1 08/13/18 07:34 APTT 30 SECONDS (21-34) D 08/11/18 07:03 Attending/Attestation - Attestation I have personally seen and examined this patient.: Yes I have fully participated in the care of the patient.: Yes I have reviewed all pertinent clinical information, including history, physical exam and plan: Yes Notes (Text): This is a late computer entry for 08/12/2018. Patient seen, examined, case discussed with medical imaging director. Patient seen this morning accompanied by at bedside. Patient has completed CT abdomen pelvis yesterday under prednisone protocol given shellfish allergy.
[2018-08-13 07:44] LABS: BASO # 0.2 K/uL (0.0-0.2); BASO % 1.1 % (0.0-2.0); EOS % 0.3 % (0.0-4.0); HEMOGLOBIN 11.7 g/dL (11.0-16.0); LYMPH # 2.6 K/uL (1.0-4.3); LYMPH % 16.9 % (20.0-40.0); MEAN CELL VOLUME 89.1 fL (81.0-99.0); MEAN CORPUSCULAR HEMOGLOBIN 29.6 pg (27.0-31.0); MEAN CORPUSCULAR HGB CONC 33.2 g/dL (33.0-37.0); MEAN PLATELET VOLUME 8.4 fL (7.2-11.7); MONO # 1.1 K/uL (0.0-0.8); MONO % 6.9 % (0.0-10.0); NEUT # 11.7 K/uL (1.8-7.0); NEUT % 74.8 % (50.0-75.0); RBC 3.96 Mil/uL (3.80-5.20); RED CELL DISTRIBUTION WIDTH 13.1 % (11.5-14.5)
[2018-08-13 07:49] LABS: WHITE BLOOD COUNT 15.6 K/uL (4.8-10.8)
[2018-08-13 07:52] LABS: INR 1.1; PROTHROMBIN TIME 11.5 SECONDS (9.7-12.2)
[2018-08-13 08:00] LABS: ALB/GLOB RATIO 1.1 (1.0-2.1); ALBUMIN 3.2 g/dL (3.5-5.0)
[2018-08-13] MEDS ORDERED: Sodium Chloride 0.9% 1,000 ML IV SCH (10:00)
[2018-08-13] MEDS: Pantoprazole 20 mg EC Tab PO SCH (10:30)
[2018-08-13] MEDS: Enoxaparin 40 mg Syringe SC SCH (10:30)
[2018-08-13] MEDS: Enoxaparin 30 mg Syringe SC SCH (12:48)
[2018-08-13] MEDS ORDERED: DiphenhydrAMINE 50 mg/ml Inj ONE (16:35)
[2018-08-13] MEDS ORDERED: Iodixanol 320 MG/ML 100 ML BOTTLE IV ONE ×3 (16:39→17:12)
[2018-08-13] MEDS ORDERED: Midazolam 2 MG/2 ML VIAL ONE (17:04)
--- NOTE | 2018-08-13 18:16 | CP.PCM.PN ---
Subjective - Date & Time of Evaluation Date of Evaluation: 08/13/18 Time of Evaluation: 18:14 - Subjective Subjective: Patient s/p cath 1. Non Obstructive Coronaries 2. Critical and Normal EF by ECHO 3. Aortic aneurysm 4.5 cm by ECHO TVAR vs. CTS as out patient Resume diet OOB to ambulate after 8pm Objective - Vital Signs/Intake and Output Vital Signs (last 24 hours): Temp Pulse Resp BP Pulse Ox 97.3 F L 95 H 18 107/69 98 08/13/18 07:00 08/13/18 07:10 08/13/18 07:00 08/13/18 07:00 08/13/18 07:00 Intake and Output: 08/13/18 08/13/18 06:59 18:59 Intake Total 120 Balance 120 - Medications Medications: Current Medications Enoxaparin Sodium (Lovenox) 30 mg SC DAILY [facility] Last Admin: 08/13/18 12:48 Dose: 30 mg Fenofibrate (Tricor) 48 mg PO DAILY [facility] Home Med (Indapamide [Lozol]) 1.25 mg PO DAILY [facility] Sodium Chloride (Sodium Chloride 0.9%) 1,000 mls @ 50 mls/hr IV .Q20H [facility] Last Admin: 08/13/18 11:23 Dose: 50 mls/hr Pantoprazole Sodium (Protonix Ec Tab) 20 mg PO DAILY [facility] Last Admin: 08/13/18 10:30 Dose: 20 mg Raloxifene HCl (Evista) 60 mg PO DAILY [facility] Last Admin: 08/13/18 10:30 Dose: 60 mg Rosuvastatin Calcium (Crestor) 5 mg PO HS [facility] Last Admin: 08/12/18 21:49 Dose: 5 mg - Labs Labs: 08/13/18 07:34 08/13/18 07:34 PT 11.5 SECONDS (9.7-12.2) 08/13/18 07:34 INR 1.1 08/13/18 07:34 APTT 30 SECONDS (21-34) D 08/11/18 07:03
--- NOTE | 2018-08-13 18:21 | CP.PCM.PN ---
Subjective - Date & Time of Evaluation Date of Evaluation: 08/13/18 Time of Evaluation: 08:00 - Subjective Subjective: Willy Wells PGY-1, Medicine progress note Pt was seen and examined at bedside. No acute events overnight. Pt has no complaints at this time. Pt denies fever, chills, dizziness, headache, lightheadedness, chest pain, sob, abdominal pain, n/v/d, urinary complaints, cough. Objective - Vital Signs/Intake and Output Vital Signs (last 24 hours): Temp Pulse Resp BP Pulse Ox 97.3 F L 95 H 18 107/69 98 08/13/18 07:00 08/13/18 07:10 08/13/18 07:00 08/13/18 07:00 08/13/18 07:00 Intake and Output: 08/13/18 08/13/18 06:59 18:59 Intake Total 120 Balance 120 - Medications Medications: Current Medications Enoxaparin Sodium (Lovenox) 30 mg SC DAILY [facility] Last Admin: 08/13/18 12:48 Dose: 30 mg Fenofibrate (Tricor) 48 mg PO DAILY [facility] Home Med (Indapamide [Lozol]) 1.25 mg PO DAILY [facility] Sodium Chloride (Sodium Chloride 0.9%) 1,000 mls @ 50 mls/hr IV .Q20H [facility] Last Admin: 08/13/18 11:23 Dose: 50 mls/hr Pantoprazole Sodium (Protonix Ec Tab) 20 mg PO DAILY [facility] Last Admin: 08/13/18 10:30 Dose: 20 mg Raloxifene HCl (Evista) 60 mg PO DAILY [facility] Last Admin: 08/13/18 10:30 Dose: 60 mg Rosuvastatin Calcium (Crestor) 5 mg PO HS [facility] Last Admin: 08/12/18 21:49 Dose: 5 mg - Labs Labs: 08/13/18 07:34 08/13/18 07:34 PT 11.5 SECONDS (9.7-12.2) 08/13/18 07:34 INR 1.1 08/13/18 07:34 APTT 30 SECONDS (21-34) D 08/11/18 07:03 - Constitutional Appears: Non-toxic, No Acute Distress - Head Exam Head Exam: NORMAL INSPECTION, NORMOCEPHALIC - Eye Exam Eye Exam: EOMI, Normal appearance - ENT Exam ENT Exam: Mucous Membranes Moist - Respiratory Exam Respiratory Exam: Clear to Ausculation Bilateral. absent: Decreased Breath Soun ds, Rales, Rhonchi, Wheezes, Respiratory Distress - Cardiovascular Exam Cardiovascular Exam: REGULAR RHYTHM, +S1, +S2, Murmur (systolic ejection murmur, 3/6. heard loudest at right midsternal 2nd intercostal space, radiating to the rigth carotid) - GI/Abdominal Exam GI & Abdominal Exam: Soft, Normal Bowel Sounds. absent: Distended, Firm, Guarding, Rigid, Tenderness Additional comments: (+) obesity - Extremities Exam Extremities Exam: Normal Capillary Refill, Normal Inspection. 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 Pt reports dyspnea and chest pressure on exertion, worsening over the past 6 months. Plan: Near-syncopal episode with chest pressure and dyspnea on exertion; likely due to Aortic stenosis -Dr. longoria noted aortic stenosis on outpatient echocardiogram -cxr shows no interval acute cardiopulmonary disease -troponin x1 is normal -bnp is 457 on admission -Cardiology, Dr. Longoria, consulted - cardiac catheterization shows 1. Non Obstructive Coronaries. 2. Critical , and Normal EF by ECHO. - TVAR vs CTS as outpatient recommended Contrast induced nephropathy - creatinine increased to 1.3 from 1.2 after IV contrast for chest CTA - acetylcysteine 600 mg BID - tricor and lovenox doses have been renally adjusted - will continue to monitor Ascending aortic aneurysm - Dr. longoria noted ascending aortic aneursym noted on outpatient echocardiogram * Chest CT 04/2018 shows 4.5cm by 4.7cm ascending aortic aneursym * Chest CT 08/12/18: * There is mild aneurysmal dilatation of the ascending thoracic aorta which measures of over 4 point 2 cm in greatest diameter. Descending thoracic aorta measures approximately 2.2 cm. The the no evidence of dissection or upper. Pulmonary trunk measures approximately 2.3 cm. No evidence of large central pulmonary embolus. * The abdominal aorta are unremarkable, without aneurysm, dissection or rupture. No intramural thrombus identified in the thoracic aorta on the non-contrast ct of the chest. 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 The superior, superior mesenteric artery, inferior mesenteric artery widely patent. Some minor calcified plaque changes seen along the origin of the right renal artery, left renal artery and extending along the inferior abdominal aorta. The renal arteries are widely patent. - BPs have been 120s-100s/60s-80s - f/u Dr. von acuña Leukocytosis - likely due to steroid pretreatment for chest cta - pt afebrile - will continue to monitor Osteoporosis - continue home calcium, vitamin D, raloxifene - calcium is 10.0 on admission - f/u vitamin D 25-oh Hx of dyslipidemia - crestor 5 mg PO QHS - Home fenofibrate renally adjusted to 48 mg PO daily - lipid panel (08/11): * LDL 86 * HDL 36 * TG 113 Hx of hypoglycemia - glucose is 116 on admission - accucheck ACHS - Hgb A1c is 5.7 - c-peptide pending - TSH 1.72 - free T4 1.23 PPX/Diet - protonix 20 mg PO daily for GI - lovenox renlly adjusted to 30 mg SC daily for VTE ppx (from 40 mg SC daily) - HHD Case was reviewed and discussed with attending, Dr. Tiera Wells PGY-1
[2018-08-13] MEDS: Acetylcysteine 20% Inhal Soln (4ml) PO SCH ×2 (18:58→19:06)
[2018-08-14] MEDS ORDERED: Acetylcysteine 20% Inhal Soln (4ml) PO ONE ×2 (01:00→19:45)
[2018-08-14 04:30] VITALS: O2SAT 96
[2018-08-14 06:19] LABS: BASO % 0.1 % (0.0-2.0); HEMOGLOBIN 11.8 g/dL (11.0-16.0); LYMPH # 0.7 K/uL (1.0-4.3); LYMPH % 5.8 % (20.0-40.0); MEAN CELL VOLUME 88.4 fL (81.0-99.0); MEAN CORPUSCULAR HEMOGLOBIN 29.8 pg (27.0-31.0); MEAN CORPUSCULAR HGB CONC 33.7 g/dL (33.0-37.0); MEAN PLATELET VOLUME 8.3 fL (7.2-11.7); MONO # 0.2 K/uL (0.0-0.8); NEUT % 92.1 % (50.0-75.0); PLATELET COUNT 299 K/uL (130-400); RBC 3.97 Mil/uL (3.80-5.20); RED CELL DISTRIBUTION WIDTH 13.1 % (11.5-14.5); WHITE BLOOD COUNT 11.9 K/uL (4.8-10.8)
[2018-08-14 06:44] LABS: ALB/GLOB RATIO 1.3 (1.0-2.1); ALBUMIN 3.3 g/dL (3.5-5.0); CALCIUM 8.4 mg/dl (8.6-10.4)
[2018-08-14 07:58] VITALS: BP 115/72; RESP 18; TEMP 97.8
[2018-08-14 09:05] LABS: BANDS 2 % (0-2); LYMPHOCYTE 6 % (20-40); MONOCYTE 1 % (0-10); NEUTROPHIL 91 % (50-75); PLATELET ESTIMATE NORMAL (NORMAL); TOTAL CELLS COUNTED 100
[2018-08-14 09:06] LABS: HYPOCHROMIC SLIGHT; POLYCHROMIC SLIGHT
--- NOTE | 2018-08-14 09:06 | CP.PCM.PN ---
Objective - Vital Signs/Intake and Output Vital Signs (last 24 hours): Temp Pulse Resp BP Pulse Ox 97.8 F 73 18 115/72 96 08/14/18 07:00 08/14/18 07:00 08/14/18 07:00 08/14/18 07:00 08/14/18 07:00 Intake and Output: 08/14/18 08/14/18 06:59 18:59 Intake Total 120 Balance 120 - Medications Medications: Current Medications Enoxaparin Sodium (Lovenox) 30 mg SC DAILY [facility] Last Admin: 08/13/18 12:48 Dose: 30 mg Fenofibrate (Tricor) 48 mg PO DAILY [facility] Home Med (Indapamide [Lozol]) 1.25 mg PO DAILY [facility] Pantoprazole Sodium (Protonix Ec Tab) 20 mg PO DAILY [facility] Last Admin: 08/13/18 10:30 Dose: 20 mg Raloxifene HCl (Evista) 60 mg PO DAILY [facility] Last Admin: 08/13/18 10:30 Dose: 60 mg Rosuvastatin Calcium (Crestor) 5 mg PO HS [facility] Last Admin: 08/13/18 21:09 Dose: 5 mg - Labs Labs: 08/14/18 06:08 08/14/18 06:08 PT 11.5 SECONDS (9.7-12.2) 08/13/18 07:34 INR 1.1 08/13/18 07:34 APTT 30 SECONDS (21-34) D 08/11/18 07:03
[2018-08-14] MEDS: Enoxaparin 30 mg Syringe SC SCH (09:56)
[2018-08-14] MEDS: Pantoprazole 20 mg EC Tab PO SCH (10:00)
[2018-08-14 13:43] LABS: C-PEPTIDE 2.56 ng/mL (0.80-3.85)
--- NOTE | 2018-08-14 13:58 | CP.PCM.DIS ---
Provider - Provider Date of Admission: 08/10/18 13:10 Attending physician: Eden Mott DO Time Spent in preparation of Discharge (in minutes): 35 Hospital Course - Lab Results Lab Results: Most Recent Lab Values WBC 11.9 K/uL (4.8-10.8) H 08/14/18 06:08 RBC 3.97 Mil/uL (3.80-5.20) 08/14/18 06:08 Hgb 11.8 g/dL (11.0-16.0) 08/14/18 06:08 Hct 35.1 % (34.0-47.0) 08/14/18 06:08 MCV 88.4 fL (81.0-99.0) 08/14/18 06:08 MCH 29.8 pg (27.0-31.0) 08/14/18 06:08 MCHC 33.7 g/dL (33.0-37.0) 08/14/18 06:08 RDW 13.1 % (11.5-14.5) 08/14/18 06:08 Plt Count 299 K/uL (130-400) 08/14/18 06:08 MPV 8.3 fL (7.2-11.7) 08/14/18 06:08 Neut % (Auto) 92.1 % (50.0-75.0) H 08/14/18 06:08 Lymph % (Auto) 5.8 % (20.0-40.0) L 08/14/18 06:08 [place] % (Auto) 2.0 % (0.0-10.0) 08/14/18 06:08 Eos % (Auto) 0.0 % (0.0-4.0) 08/14/18 06:08 Baso % (Auto) 0.1 % (0.0-2.0) 08/14/18 06:08 Neut # (Auto) 11.0 K/uL (1.8-7.0) H 08/14/18 06:08 Lymph # (Auto) 0.7 K/uL (1.0-4.3) L 08/14/18 06:08 [place] # (Auto) 0.2 K/uL (0.0-0.8) 08/14/18 06:08 Eos # (Auto) 0.0 K/uL (0.0-0.7) 08/14/18 06:08 Baso # (Auto) 0.0 K/uL (0.0-0.2) 08/14/18 06:08 Neutrophils % (Manual) 91 % (50-75) H 08/14/18 06:08 Band Neutrophils % 2 % (0-2) 08/14/18 06:08 Lymphocytes % (Manual) 6 % (20-40) L 08/14/18 06:08 Monocytes % (Manual) 1 % (0-10) 08/14/18 06:08 Platelet Estimate Normal (NORMAL) 08/14/18 06:08 Large Platelets Present 08/12/18 07:16 Polychromasia Slight 08/14/18 06:08 Hypochromasia (manual) Slight 08/14/18 06:08 Anisocytosis (manual) Slight 08/12/18 07:16 PT 11.5 SECONDS (9.7-12.2) 08/13/18 07:34 INR 1.1 08/13/18 07:34 APTT 30 SECONDS (21-34) D 08/11/18 07:03 Sodium 142 mmol/L (132-148) 08/14/18 06:08 Potassium 4.0 mmol/L (3.6-5.2) 08/14/18 06:08 Chloride 108 mmol/L (98-107) H 08/14/18 06:08 Carbon Dioxide 24 mmol/L (22-30) 08/14/18 06:08 Anion Gap 14 (10-20) 08/14/18 06:08 BUN 27 mg/dL (7-17) H 08/14/18 06:08 Creatinine 1.2 mg/dL (0.7-1.2) 08/14/18 06:08 Est GFR ( Amer) 53 08/14/18 06:08 Est GFR (Non-Af Amer) 44 08/14/18 06:08 POC Glucose (mg/dL) 166 mg/dL (65-110) H 08/14/18 05:51 Random Glucose 159 mg/dL (65-105) H 08/14/18 06:08 Hemoglobin A1c 5.7 % (4.2-6.5) 08/11/18 07:03 C-Peptide 2.56 ng/mL (0.80-3.85) 08/11/18 07:03 Calcium 8.4 mg/dl (8.6-10.4) L 08/14/18 06:08 Total Bilirubin 0.3 mg/dL (0.2-1.3) 08/14/18 06:08 AST 14 U/L (14-36) 08/14/18 06:08 ALT 21 U/L (9-52) 08/14/18 06:08 Alkaline Phosphatase 53 U/L (38-126) 08/14/18 06:08 Troponin I 0.0140 ng/mL (0.00-0.120) 08/10/18 12:29 NT-Pro-B Natriuret Pep 457 pg/mL (0-900) 08/10/18 12:29 Total Protein 5.9 g/dL (6.3-8.3) L 08/14/18 06:08 Albumin 3.3 g/dL (3.5-5.0) L 08/14/18 06:08 Globulin 2.6 gm/dL (2.2-3.9) 08/14/18 06:08 Albumin/Globulin Ratio 1.3 (1.0-2.1) 08/14/18 06:08 Triglycerides 113 mg/dL (0-149) 08/11/18 07:03 Cholesterol 146 mg/dL (0-199) 08/11/18 07:03 LDL Cholesterol Direct 86 mg/dL (0-129) 08/11/18 07:03 HDL Cholesterol 36 mg/dL (30-70) 08/11/18 07:03 25-OH Vitamin D Total 46.5 NG/ML (30.0-100.0) 08/11/18 07:03 Free T4 1.23 ng/dL (0.78-2.19) 08/11/18 07:03 TSH 3rd Generation 1.72 mIU/L (0.46-4.68) 08/11/18 07:03 - Hospital Course Hospital Course: On admission: This is a 73 year old Swedish-speaking female with PMH of dyslipidemia, osteoporosis, hypoglycemic episodes who was 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 Pt reports dyspnea and chest pressure on exertion, worsening over the past 6 months. Chest pressure is described as a feeling of someone pushing on her midchest; no radiation, no chest pain, no neck pain. Symptoms are provoked by walking (sometimes less than one block), and alleviated by rest. Symptoms worsened last week, when she had a near-syncopal episode decreased as dizziness. Pt did not fall and hid not suffer any trauma at that time. She denies headache, fever, chills, paresthesias, blurry vision, tearing or ripping quality of chest pain, palpitations, abdominal pain, n/v/d, urinary complaints. She also endorses a history of unexplained bruising for as long as she can remember. Hospital course: Pt was admitted to telemetry. Pt restarted on home medications, dvt/GI ppx. CXR showed no acute interval cardiopulmonary disease. Pt continued to be asymptomatic, and hemodynamically stable, during hospital stay. Dr. Anders, cardiology, consulted. Lipid panel was normal and her Fenofibrate was discontinued as per cardiology. Pt was pretreated fro shellfish allergy due to planned chest cta, with resulting leukocytosis due to prednisone. No signs of infectious etiology at that time. Chest CTA 08/12/18:There is mild aneurysmal dilatation of the ascending thoracic aorta which measures of over 4 point 2 cm in greatest diameter. Descending thoracic aorta measures approximately 2.2 cm. The the no evidence of dissection or upper. Pulmonary trunk measures approximately 2.3 cm. No evidence of large central pulmonary embolus. The abdominal aorta are unremarkable, without aneurysm, dissection or rupture. No intramural thrombus identified in the thoracic aorta on the non-contrast ct of the chest.There is a variant of the celiac axis with apparent separate origins of the common hepatic, left gastric and splenic arteries.. The superior, superior mesenteric artery, inferior mesenteric artery widely patent. Some minor calcified plaque changes seen along the origin of the right renal artery, left renal artery and extending along the inferior abdominal aorta. The renal arteries are widely patent. Patient had mild elevation of creatinine, which quickly normalized, after contrast administration. Cardiac catheterization performed by Dr. Anders, which showed critical , with normal EF by echo. Dr. Anders recommends TVAR which will be scheduled outpatient. This is a summary of the hospital course, please see chart for full detail. Discharge Exam - Head Exam Head Exam: NORMAL INSPECTION, NORMOCEPHALIC - Eye Exam Eye Exam: EOMI, Normal appearance - ENT Exam ENT Exam: Mucous Membranes Moist - Neck Exam Neck exam: Normal Inspection - Respiratory Exam Respiratory Exam: Clear to PA & Lateral, NORMAL BREATHING PATTERN. absent: Decreased Breath Sounds, Rales, Rhonchi, Wheezes, Respiratory Distress, Stridor - Cardiovascular Exam Cardiovascular Exam: +S1, +S2, Systolic Murmur (3/6 systolic crescendo- decrscendo murmur heard best at the aortic valve, and radiating to the carotid) - GI/Abdominal Exam GI & Abdominal Exam: Normal Bowel Sounds, Soft. absent: Distended, Firm, Guarding, Rebound, Rigid, Tenderness - Extremities Exam Extremities exam: normal capillary refill, normal inspection, pedal pulses present - Back Exam Back exam: NORMAL INSPECTION - Psychiatric Exam Psychiatric exam: Normal Affect, Normal Mood - Skin Skin Exam: Dry, Normal Color, Warm Discharge Plan - Discharge Medications Prescriptions: Aspirin [Adult Low Dose Aspirin EC] 81 mg PO DAILY 30 Days #30 tablet.dr - Follow Up Plan Condition: GUARDED Disposition: HOME/ ROUTINE Instructions: Heart Healthy Diet, Cardiac Catheterization (DC), Shortness of Breath (Dyspnea) (DC), Aortic Stenosis, Adult (DC), Aortic Aneurysm (DC) Additional Instructions: Patient is medically stable and safe for discharge home as per Dr. Mott and Dr. Anders. Patient should continue taking her home medications as prescribed, except Indapamide and Fenofibrate. Patient should stop taking Indapamide and Fenofibrate. Patient should start taking Aspirin 81 mg by mouth once daily. Patient should follow up with Dr. Anders at her prearranged appointment: 08/17/18 at 4 pm at his office. Patient provided with appointment card and referral for Dr. Anders. Should symptoms worsen, please call Dr. Anders, or go to the nearest Emergency Department for evaluation. Instructions explained to patient and daughter, who understand and agree with discharge plan. Referrals: Ezequiel Anders MD [Staff Provider] -
[2018-08-14 14:38] VITALS: PULSE 80
--- NOTE | 2018-08-20 12:09 | CARDCATH ---
PROCEDURE DATE: 08/13/2018 PROCEDURES: 1. Coronary angiogram. 2. Ascending aortic root angiogram. CLINICAL INDICATIONS: 1. Severe symptomatic aortic stenosis. 2. Dyspnea and chest pain on minimal exertion. 3. Hypertension. 4. Hyperlipidemia. REFERRING PHYSICIAN: Dr. Banks PERFORMING PHYSICIAN: Ezequiel Anders MD PROCEDURE: After informed consent, patient was prepped and draped in the usual sterile fashion. A 2% lidocaine was given in the right groin for the local anesthesia. Using micropuncture technique, 6-Venezuelan sheath was introduced into right common femoral artery. A JL4 6-Venezuelan diagnostic catheter engaged into left main coronary artery. Contrast was injected and left coronary angiogram was done. Then the catheter was exchanged with 6-Venezuelan no-torque catheter. The catheter was engaged into right coronary artery. Contrast injected and right coronary angiogram was done. Then, the catheter was exchanged to 6-Venezuelan pigtail catheter. The pigtail catheter was introduced into ascending aorta. Using the power injector, contrast injected and ascending root aortogram was done. Patient tolerated the procedure well. Postprocedure, Mynx closure device was applied to the right groin with excellent hemostasis. Radiological supervision and radiological interpretation of the coronary imaging was done. FINDINGS: 1. Left main coronary artery is patent. 2. Left anterior descending artery and diagonal branches are patent. 3. Left circumflex and obtuse marginal branches are patent. Patient has left dominant system. 4. Right coronary artery is small and nondominant system. The right coronary artery has proximal 90% stenosis. 5. Ascending root aortogram suggests ascending aortic root aneurysm. IMPRESSION: 1. Normal coronaries. 2. Ascending root aortic aneurysm. RECOMMENDATIONS: Patient has a severe symptomatic aortic stenosis. Patient also has moderate size ascending root aortic aneurysm. Patient will be referred to CT Surgery for further assessment if patient is a candidate for TAVR or open surgery. Ezequiel Anders MD
== END 2018-08-14 14:34 | disposition home or self-care (01) | DRG 287 ==
LOC: C.ER 11:00 → C.9E 13:10 → C.6T 16:11
PROVIDERS: ADMIT Hospitalist; ATTEND Hospitalist
PROC: 4A023N7 Measurement of Cardiac Sampling and Pressure, Left Heart, Percutaneous Approach (ICD-10-PCS; principal; 2018-08-13)
PROC: B2151ZZ Fluoroscopy of Left Heart using Low Osmolar Contrast (ICD-10-PCS; 2018-08-13)
PROC: B2111ZZ Fluoroscopy of Multiple Coronary Arteries using Low Osmolar Contrast (ICD-10-PCS; 2018-08-13)
DX: I35.0 Nonrheumatic aortic (valve) stenosis (principal); Q25.43 Congenital aneurysm of aorta; E78.5 Hyperlipidemia, unspecified; D72.829 Elevated white blood cell count, unspecified; I12.9 Hypertensive chronic kidney disease with stage 1 through stage 4 chronic kidney disease, or unspecified chronic kidney disease; I71.2 Thoracic aortic aneurysm, without rupture; N18.3 Chronic kidney disease, stage 3 (moderate); M81.0 Age-related osteoporosis without current pathological fracture; Z87.891 Personal history of nicotine dependence; Z91.013 Allergy to seafood; D72.828 Other elevated white blood cell count; T38.0X5A Adverse effect of glucocorticoids and synthetic analogues, initial encounter

== ENCOUNTER 2019-04-02 13:21 | Outpatient (CLI) | payer OTHER | END 2019-04-02 13:22 | disposition home or self-care (01) | LOC: C.MAMMO 13:22 ==

== ENCOUNTER 2019-04-02 14:30 | Inpatient (IN) | payer OTHER ==
[2019-04-02 14:42] VITALS: BMI 32.8
--- NOTE | 2019-04-02 15:33 | C.PDOC ---
Time Seen by Provider: 04/02/19 14:51 Chief Complaint (Nursing): Shortness Of Breath Past Medical History Vital Signs: Last Vital Signs Temp 98.9 F 04/02/19 14:44 Pulse 63 04/02/19 14:44 Resp 18 04/02/19 14:44 BP 121/67 04/02/19 14:44 Pulse Ox 96 04/02/19 14:44 Primary Care Provider: Kareem Banks - Medical History PMH: Arthritis, HTN, Hypercholesterolemia, Osteoporosis Denies: Chronic Kidney Disease Comment Only: Anxiety (???) - [facility] Procedures FLUOROSCOPY OF LEFT HEART USING LOW OSMOLAR CONTRAST (08/10/18) FLUOROSCOPY OF MULT COR ART USING L OSM CONTRAST (08/10/18) MEASURE OF CARDIAC SAMPL & PRESSURE, L HEART, PERC APPROACH (08/10/18) Family History: States: Unknown Family Hx - Social History Hx Alcohol Use: No Hx Substance Use: No - Immunization History Hx Tetanus Toxoid Vaccination: No Hx Influenza Vaccination: Yes (08/02/2018) Hx Pneumococcal Vaccination: Yes ED Course And Treatment O2 Sat by Pulse Oximetry: 96 Disposition - Disposition
--- NOTE | 2019-04-02 15:33 | C.PDOC ---
History Of Present Illness Patient is a 73 year old female, with a PMHx of aortic stenosis with heart valve replacement and a cyst on her spine, who presents to the ED with her daughter for evaluation of worsening SOB and pain to the back of her right leg from the middle of the glute to the bottom of the foot present since 2017. Daughter reports that patient was supposed to have a mammogram done today, but when she woke up she was unable to walk without assistance due to her SOB. Daughter denies any pedal edema, headache, nausea, vomiting, fever, cough, or recent illnesses. Time Seen by Provider: 04/02/19 14:51 Chief Complaint (Nursing): Shortness Of Breath History Per: Patient History/Exam Limitations: no limitations Current Symptoms Are (Timing): Still Present Associated Symptoms: denies: Fever, Bloody Cough, Productive Cough Recent travel outside of the [place]: No Additional History Per: Patient Past Medical History Reviewed: Historical Data, Nursing Documentation, Vital Signs Vital Signs: Last Vital Signs Temp 98.9 F 04/02/19 14:44 Pulse 63 04/02/19 14:44 Resp 18 04/02/19 14:44 BP 121/67 04/02/19 14:44 Pulse Ox 96 04/02/19 14:44 Primary Care Provider: Kareem Banks - Medical History PMH: Arthritis, HTN, Hypercholesterolemia, Osteoporosis Denies: Chronic Kidney Disease Comment Only: Anxiety (???) Surgical History: No Surg Hx - [facility] Procedures FLUOROSCOPY OF LEFT HEART USING LOW OSMOLAR CONTRAST (08/10/18) FLUOROSCOPY OF MULT COR ART USING L OSM CONTRAST (08/10/18) MEASURE OF CARDIAC SAMPL & PRESSURE, L HEART, PERC APPROACH (08/10/18) Family History: States: Unknown Family Hx - Social History Hx Alcohol Use: No Hx Substance Use: No - Immunization History Hx Tetanus Toxoid Vaccination: No Hx Influenza Vaccination: Yes (08/02/2018) Hx Pneumococcal Vaccination: Yes Review Of Systems Constitutional: Negative for: Fever Cardiovascular: Negative for: Edema Respiratory: Positive for: Shortness of Breath. Negative for: Cough Gastrointestinal: Negative for: Nausea, Vomiting Musculoskeletal: Positive for: Leg Pain (back of right leg) Neurological: Negative for: Headache Physical Exam - Physical Exam Appears: Non-toxic, No Acute Distress Skin: Normal Color, Warm, No Rash Head: Atraumatic, Normacephalic Eye(s): bilateral: Normal Inspection Oral Mucosa: Moist Neck: Normal ROM, Supple Chest: Symmetrical, No Deformity Cardiovascular: Rhythm Regular, No Friction Rub, No Murmur Respiratory: Normal Breath Sounds, No Rales, No Rhonchi, No Wheezing Gastrointestinal/Abdominal: Soft, No Tenderness Back: Normal Inspection, No CVA Tenderness, No Vertebral Tenderness, No Paraspinal Tenderness Extremity: Normal ROM, No Tenderness, No Calf Tenderness, No Swelling Pulses: Left Dorsalis Pedis: Normal, Right Dorsalis Pedis: Normal Neurological/Psych: Oriented x3, Normal Speech, Normal Cognition, Normal Motor, Normal Sensation ED Course And Treatment - Laboratory Results Result Diagrams: 04/02/19 16:11 04/02/19 16:11 O2 Sat by Pulse Oximetry: 96 (on RA) Pulse Ox Interpretation: Normal - Other Rad CXR X-Ray: Viewed By Me, Read By Radiologist Interpretation: Date of service: 04/02/2019. PROCEDURE: CHEST RADIOGRAPH, 1 VIEW. HISTORY: chest pain. COMPARISON: 08/10/2018. FINDINGS: LUNGS: The lungs are well inflated and clear. PLEURA: No pneumothorax or pleural effusion. CARDIOVASCULAR: The heart is normal in size. No aortic atherosclerotic calcifications present. OSSEOUS STRUCTURES: Within normal limits for the patient's age. VISUALIZED UPPER ABDOMEN: Normal. OTHER FINDINGS: None. IMPRESSION: No active pulmonary disease. Medical Decision Making Medical Decision Making: Plan: EKG Labs CXR UA The case was discussed with Dr. Ezequiel Anders (weaver wire loom) who states to admit the patient for SOB and states to order a CTA to check status of AAA and r/o PE. Patient has an allergy to IV dye and Shellfish. Solu-medrol ordered and CTA will be delayed for 4 hours. Benadryl Iv will be given at 2100 and CTA done at 2200. The case was discussed with Dr. Samuel Brownlee who sstates to admit the patient under Dr. Alex Velázquez's service. Disposition - Disposition Disposition: HOSPITALIZED Disposition Time: 18:00 Condition: STABLE Forms: [facility] (Urdu) - POA Present On Arrival: None - Clinical Impression Clinical Impression: SOB (shortness of breath), Aortic stenosis, Ascending aortic aneurysm - PA / PERSONAL LINES AGENT / Resident Statement MD/DO has reviewed & agrees with the documentation as recorded. - Scribe Statement The provider has reviewed the documentation as recorded by the Scribe Camryn Alex All medical record entries made by the Scribe were at my direction and pers onally dictated by me. I have reviewed the chart and agree that the record accurately reflects my personal performance of the history, physical exam, medical decision making, and the department course for this patient. I have also personally directed, reviewed, and agree with the discharge instructions and disposition.
--- NOTE | 2019-04-02 15:56 | RAD ---
Date of service: 04/02/2019 PROCEDURE: CHEST RADIOGRAPH, 1 VIEW HISTORY: chest pain COMPARISON: 08/10/2018 FINDINGS: LUNGS: The lungs are well inflated and clear. PLEURA: No pneumothorax or pleural effusion. CARDIOVASCULAR: The heart is normal in size. No aortic atherosclerotic calcifications present. OSSEOUS STRUCTURES: Within normal limits for the patient's age. VISUALIZED UPPER ABDOMEN: Normal. OTHER FINDINGS: None. IMPRESSION: No active pulmonary disease.
[2019-04-02 16:18] LABS: BASO % 0.4 % (0.0-2.0); EOS # 0.1 K/uL (0.0-0.7); EOS % 0.7 % (0.0-4.0); HEMOGLOBIN 13.1 g/dL (11.0-16.0); LYMPH # 1.9 K/uL (1.0-4.3); LYMPH % 24.8 % (20.0-40.0); MEAN CORPUSCULAR HEMOGLOBIN 29.7 pg (27.0-31.0); MEAN CORPUSCULAR HGB CONC 32.1 g/dL (33.0-37.0); MEAN PLATELET VOLUME 7.8 fL (7.2-11.7); MONO # 0.4 K/uL (0.0-0.8); MONO % 5.2 % (0.0-10.0); NEUT # 5.3 K/uL (1.8-7.0); NEUT % 68.9 % (50.0-75.0); RBC 4.43 Mil/uL (3.80-5.20); RED CELL DISTRIBUTION WIDTH 13.3 % (11.5-14.5); WHITE BLOOD COUNT 7.7 K/uL (4.8-10.8)
[2019-04-02 16:19] LABS: MEAN CELL VOLUME 92.3 fL (81.0-99.0)
[2019-04-02 16:26] LABS: INR 1.1; PROTHROMBIN TIME 11.5 SECONDS (9.7-12.2)
[2019-04-02 16:32] LABS: ALB/GLOB RATIO 1.2 (1.0-2.1); ALBUMIN 4.1 g/dL (3.5-5.0); ALT/SGPT 11 U/L (9-52); AST/SGOT 17 U/L (14-36); BLOOD UREA NITROGEN 18 mg/dL (7-17); CALCIUM 10.1 mg/dl (8.6-10.4); GFR NON-AFRICAN AMERICAN > 60
[2019-04-02 16:45] LABS: B-TYPE NATRIURETIC PEPTIDE 248 pg/mL (0-900)
[2019-04-02 17:25] LABS: SQUAMOUS EPITHIAL 1 /hpf (0-5); URINE BILIRUBIN NEGATIVE (NEGATIVE); URINE BLOOD NEGATIVE (NEGATIVE); URINE CLARITY Clear (Clear); URINE COLOR Yellow (YELLOW); URINE GLUCOSE (UA) NORMAL (Normal); URINE LEUKOCYTE ESTERASE 1+ Leu/uL (Negative); URINE PROTEIN NEGATIVE (NEGATIVE); URINE UROBILINOGEN NORMAL mg/dL (0.2-1.0)
[2019-04-02] MEDS ORDERED: MethylPREDNISolone 40 mg Vial IVP STA (17:52)
[2019-04-02] MEDS ORDERED: MethylPREDNISolone 40 mg Vial ONE (18:06)
--- NOTE | 2019-04-02 19:47 | CP.PCM.HP ---
<William Turner - Last Filed: 04/02/19 22:27> History of Present Illness - History of Present Illness History of Present Illness: 73F PMHx of aortic stenosis with TAVR (Sep) and a cyst on her spine, who presents to the ED with her daughter for evaluation of worsening SOB. Pt says it was an acute onset after a her mammogram. Pt thinks she got nervous and began panic. Reports getting worried over the mammogram. Pt says she gets worried a lot and that she gets anxiety for the past 50 years. She does however say she has had dyspnea on exertion for the past 2 years or so. Pt was supposed to see Dr Banks tmrw but was told to go to the ER by her daughter. Pt follows up regulary with PMD and Cardio, compliant w/ home meds. ROS Pos+ SOB, YOU, Anxiety, Palpitations, sciatica L side Neg- CP, neck/jaw/back pain, blood in stool/urine/sputum, syncope, pedal edema, headache, nausea, vomiting, fever, cough, or recent illnesses. PMD: Darren Cardio: Chago PMH: dyslipidemia, osteoporosis, hypoglycemic episodes PSH: bunionectomy 2016, 2017, right breast cyst biopsy 2007 (benign), TAVR FHx: (+) history multiple family members with sudden cardiac (ages 50s- 60s) on Mother's side; Father of [place] at age 58, HTN, DM. No family history of cancers. Meds: Atorvastatin 10 mg daily, Indapamide 1.25 mg daily, Ralaxifine 60 mg daily, Fenofibrate 160 mg daily, Calcium, Vitamin D Allx: Seafood (shellfish) Social Hx: remote history of smoking at age 40 (2-3 cigs/day); social etoh use; no illicit drug use. Born in [place] immigrated to [facility] [place] 2001. Preventative: Colonoscopy 3 years ago normal; Mammogram in february 2018 normal; papsmear 5 years ago normal Pt's sister in law, Luna Bermudez, is an blow molding machine tender in [phone]. Present on Admission - Present on Admission Any Indicators Present on Admission: No Review of Systems - Review of Systems All systems: reviewed and no additional remarkable complaints except (as per HPI) Past Patient History - Infectious Disease Hx of Infectious Diseases: None - Past Medical History & Family History Past Medical History?: Yes - Past Social History Smoking Status: Never Smoked - CARDIAC Hx Hypercholesterolemia: Yes Hx Hypertension: Yes - PULMONARY Hx Respiratory Disorders: No - NEUROLOGICAL Hx Neurological Disorder: Yes Hx Dizziness: Yes (last week) - HEENT Hx HEENT Problems: Yes Hx Cataracts: Yes Other/Comment: wear glasses for reading - RENAL Hx Chronic Kidney Disease: No - ENDOCRINE/METABOLIC Hx Endocrine Disorders: No - HEMATOLOGICAL/ONCOLOGICAL Hx Blood Disorders: No - INTEGUMENTARY Hx Dermatological Problems: No - MUSCULOSKELETAL/RHEUMATOLOGICAL Hx Arthritis: Yes Hx Osteoporosis: Yes - GASTROINTESTINAL Hx Gastrointestinal Disorders: No - GENITOURINARY/GYNECOLOGICAL Hx Genitourinary Disorders: No - PSYCHIATRIC Hx Anxiety: (???) Hx Substance Use: No - SURGICAL HISTORY Hx Surgeries: Yes Other/Comment: bilateral foot surgery. - ANESTHESIA Hx Anesthesia: Yes Hx Anesthesia Reactions: No Hx Malignant Hyperthermia: No Meds Allergies/Adverse Reactions: Allergies Allergy/AdvReac Type Severity Reaction Status Date / Time shellfish derived Allergy Verified 04/02/19 14:41 Physical Exam - Constitutional Appears: Non-toxic, No Acute Distress - Head Exam Head Exam: ATRAUMATIC, NORMOCEPHALIC - Eye Exam Eye Exam: EOMI, Normal appearance. absent: Scleral icterus Pupil Exam: PERRL - ENT Exam ENT Exam: Mucous Membranes Moist - Neck Exam Neck exam: Positive for: Full Rom. Negative for: Tenderness, Thyromegaly - Respiratory Exam Respiratory Exam: Clear to Auscultation Bilateral. absent: Rhonchi, Wheezes - Cardiovascular Exam Cardiovascular Exam: RRR, +S1, +S2, Systolic Murmur (mild at 2nd intercostal R) - GI/Abdominal Exam GI & Abdominal Exam: absent: Rebound, Rigid, Tenderness - Extremities Exam Extremities exam: Positive for: pedal pulses present. Negative for: pedal edema - Neurological Exam Neurological exam: Alert, CN II-XII Intact, Oriented x3 - Psychiatric Exam Psychiatric exam: Normal Affect, Normal Mood - Skin Skin Exam: Normal Color, Warm Results - Vital Signs Recent Vital Signs: Last Vital Signs Temp 98.9 F 04/02/19 14:44 Pulse 56 L 04/02/19 19:07 Resp 15 04/02/19 19:07 BP 123/64 05/28/19 19:07 Pulse Ox 98 04/02/19 19:07 - Labs Result Diagrams: 04/02/19 16:11 04/02/19 16:11 Labs: Laboratory Results - last 24 hr 04/02/19 04/02/19 04/02/19 16:11 16:11 16:11 WBC 7.7 RBC 4.43 Hgb 13.1 Hct 40.9 MCV 92.3 D MCH 29.7 MCHC 32.1 L RDW 13.3 Plt Count 301 MPV 7.8 Neut % (Auto) 68.9 Lymph % (Auto) 24.8 [place] % (Auto) 5.2 Eos % (Auto) 0.7 Baso % (Auto) 0.4 Neut # (Auto) 5.3 Lymph # (Auto) 1.9 [place] # (Auto) 0.4 Eos # (Auto) 0.1 Baso # (Auto) 0.0 PT 11.5 INR 1.1 APTT 32.0 Sodium 139 Potassium 4.1 Chloride 102 Carbon Dioxide 28 Anion Gap 12 BUN 18 H Creatinine 0.9 Est GFR ( Amer) > 60 Est GFR (Non-Af Amer) > 60 Random Glucose 97 D Calcium 10.1 Total Bilirubin 0.7 AST 17 ALT 11 Alkaline Phosphatase 81 Troponin I < 0.0120 NT-Pro-B Natriuret Pep 248 Total Protein 7.5 Albumin 4.1 Globulin 3.4 Albumin/Globulin Ratio 1.2 Urine Color Urine Clarity Urine pH Ur Specific [place] Urine Protein Urine Glucose (UA) Urine Ketones Urine Blood Urine Nitrate Urine Bilirubin Urine Urobilinogen Ur Leukocyte Esterase Urine WBC (Auto) Urine RBC (Auto) Ur Squamous Epith Cells 04/02/19 17:14 WBC RBC Hgb Hct MCV MCH MCHC RDW Plt Count MPV Neut % (Auto) Lymph % (Auto) [place] % (Auto) Eos % (Auto) Baso % (Auto) Neut # (Auto) Lymph # (Auto) [place] # (Auto) Eos # (Auto) Baso # (Auto) PT INR APTT Sodium Potassium Chloride Carbon Dioxide Anion Gap BUN Creatinine Est GFR ( Amer) Est GFR (Non-Af Amer) Random Glucose Calcium Total Bilirubin AST ALT Alkaline Phosphatase Troponin I NT-Pro-B Natriuret Pep Total Protein Albumin Globulin Albumin/Globulin Ratio Urine Color Yellow Urine Clarity Clear Urine pH 5.0 Ur Specific [place] 1.029 Urine Protein Negative Urine Glucose (UA) Normal Urine Ketones Trace Urine Blood Negative Urine Nitrate Negative Urine Bilirubin Negative Urine Urobilinogen Normal Ur Leukocyte Esterase 1+ H Urine WBC (Auto) 9 H Urine RBC (Auto) 1 Ur Squamous Epith Cells 1 Assessment & Plan - Assessment and Plan (Free Text) Assessment: SOB, YOU-acute Dr. Anders consulted f/u ROMIs f/u CT angio Dr Jose Gold Consulted f/u recs -ASA 81 -Toprol 25 daily -Heparin 500u q8 -tramadol TID PRN for pain Hx Ascending aortic aneurysm-chronic - stable at this time - continue home BP meds Osteoporosis- chronic - continue home calcium, vitamin D, raloxifene Hx of dyslipidemia- chronic - crestor 5 mg PO QHS PPX/Diet - Heparin 5000u q8 - HHD CK PGY1 <Alex Velázquez - Last Filed: 04/03/19 06:43> Results - Vital Signs Recent Vital Signs: Last Vital Signs Temp 97.8 F 04/02/19 23:55 Pulse 79 04/03/19 00:22 Resp 20 04/02/19 23:55 BP 105/67 04/02/19 23:55 Pulse Ox 95 04/02/19 23:55 - Labs Result Diagrams: 04/02/19 16:11 04/02/19 16:11 Labs: Laboratory Results - last 24 hr 04/02/19 04/02/19 04/02/19 16:11 16:11 16:11 WBC 7.7 RBC 4.43 Hgb 13.1 Hct 40.9 MCV 92.3 D MCH 29.7 MCHC 32.1 L RDW 13.3 Plt Count 301 MPV 7.8 Neut % (Auto) 68.9 Lymph % (Auto) 24.8 [place] % (Auto) 5.2 Eos % (Auto) 0.7 Baso % (Auto) 0.4 Neut # (Auto) 5.3 Lymph # (Auto) 1.9 [place] # (Auto) 0.4 Eos # (Auto) 0.1 Baso # (Auto) 0.0 PT 11.5 INR 1.1 APTT 32.0 Sodium 139 Potassium 4.1 Chloride 102 Carbon Dioxide 28 Anion Gap 12 BUN 18 H Creatinine 0.9 Est GFR ( Amer) > 60 Est GFR (Non-Af Amer) > 60 Random Glucose 97 D Calcium 10.1 Total Bilirubin 0.7 AST 17 ALT 11 Alkaline Phosphatase 81 Total Creatine Kinase CK-MB (Mass) Troponin I < 0.0120 NT-Pro-B Natriuret Pep 248 Total Protein 7.5 Albumin 4.1 Globulin 3.4 Albumin/Globulin Ratio 1.2 Urine Color Urine Clarity Urine pH Ur Specific [place] Urine Protein Urine Glucose (UA) Urine Ketones Urine Blood Urine Nitrate Urine Bilirubin Urine Urobilinogen Ur Leukocyte Esterase Urine WBC (Auto) Urine RBC (Auto) Ur Squamous Epith Cells 04/02/19 04/02/19 17:14 22:55 WBC RBC Hgb Hct MCV MCH MCHC RDW Plt Count MPV Neut % (Auto) Lymph % (Auto) [place] % (Auto) Eos % (Auto) Baso % (Auto) Neut # (Auto) Lymph # (Auto) [place] # (Auto) Eos # (Auto) Baso # (Auto) PT INR APTT Sodium Potassium Chloride Carbon Dioxide Anion Gap BUN Creatinine Est GFR ( Amer) Est GFR (Non-Af Amer) Random Glucose Calcium Total Bilirubin AST ALT Alkaline Phosphatase Total Creatine Kinase 36 CK-MB (Mass) 0.33 Troponin I < 0.0120 NT-Pro-B Natriuret Pep Total Protein Albumin Globulin Albumin/Globulin Ratio Urine Color Yellow Urine Clarity Clear Urine pH 5.0 Ur Specific [place] 1.029 Urine Protein Negative Urine Glucose (UA) Normal Urine Ketones Trace Urine Blood Negative Urine Nitrate Negative Urine Bilirubin Negative Urine Urobilinogen Normal Ur Leukocyte Esterase 1+ H Urine WBC (Auto) 9 H Urine RBC (Auto) 1 Ur Squamous Epith Cells 1 Assessment & Plan - Date & Time Date: 04/02/19 (I have seen and examined the patient. I agree with the findings and plan of care as documented by Dr. Turner. Patient with SOB. History of Aortic stenosis with valve replacement/repair. Consult to Dr. Anders and Dr Garcia. For CT Angio. Allergy to shellfish. Solumedrol prior to CT. Monitor for acute changes.) Time: 23:00 Attending/Attestation - Attestation I have personally seen and examined this patient.: Yes I have fully participated in the care of the patient.: Yes I have reviewed all pertinent clinical information: Yes
[2019-04-02] MEDS ORDERED: DiphenhydrAMINE 50 mg/ml Inj IVP SCH ×2 (21:00→22:00)
[2019-04-02] MEDS ORDERED: Iodixanol 320 mg/ml 150 ml Bottle IV ONE (21:39)
--- NOTE | 2019-04-02 22:09 | CP.PCM.CON ---
History of Present Illness - History of Present Illness History of Present Illness: CC: dyspnea Patient is a 73 year old female, with a PMHx of aortic stenosis s/p TAVR and a cyst on her spine, who presents to the ED with her daughter for evaluation of worsening SOB and pain to the back of her right leg from the middle of the glute to the bottom of the foot present since 2017. Daughter reports that patient was supposed to have a mammogram done today, but when she woke up she was unable to walk without assistance due to her SOB. Daughter denies any pedal edema, headache, nausea, vomiting, fever, cough, or recent illnesses. Chief Complaint (Nursing): Shortness Of Breath History Per: Patient History/Exam Limitations: no limitations Current Symptoms Are (Timing): Still Present Associated Symptoms: denies: Fever, Bloody Cough, Productive Cough Recent travel outside of the [place]: No Additional History Per: Patient Past Medical History Reviewed: Historical Data, Nursing Documentation, Vital Signs Vital Signs: Last Vital Signs Temp 98.9 F 04/02/19 14:44 Pulse 63 04/02/19 14:44 Resp 18 04/02/19 14:44 BP 121/67 04/02/19 14:44 Pulse Ox 96 04/02/19 14:44 Primary Care Provider: Kareem Banks - Medical History PMH: Arthritis, HTN, Hypercholesterolemia, Osteoporosis Denies: Chronic Kidney Disease Comment Only: Anxiety (???) Surgical History: s/p TAVR - [facility] Procedures FLUOROSCOPY OF LEFT HEART USING LOW OSMOLAR CONTRAST (08/10/18) FLUOROSCOPY OF MULT COR ART USING L OSM CONTRAST (08/10/18) MEASURE OF CARDIAC SAMPL & PRESSURE, L HEART, PERC APPROACH (08/10/18) Family History: States: Unknown Family Hx - Social History Hx Alcohol Use: No Hx Substance Use: No - Immunization History Hx Tetanus Toxoid Vaccination: No Hx Influenza Vaccination: Yes (08/02/2018) Hx Pneumococcal Vaccination: Yes Review Of Systems Constitutional: Negative for: Fever Cardiovascular: Negative for: Edema Respiratory: Positive for: Shortness of Breath. Negative for: Cough Gastrointestinal: Negative for: Nausea, Vomiting Musculoskeletal: Positive for: Leg Pain (back of right leg) Neurological: Negative for: Headache Physical Exam - Physical Exam Appears: Non-toxic, No Acute Distress Skin: Normal Color, Warm, No Rash Head: Atraumatic, Normacephalic Eye(s): bilateral: Normal Inspection Oral Mucosa: Moist Neck: Normal ROM, Supple Chest: Symmetrical, No Deformity Cardiovascular: Rhythm Regular, No Friction Rub, No Murmur Respiratory: Normal Breath Sounds, No Rales, No Rhonchi, No Wheezing Gastrointestinal/Abdominal: Soft, No Tenderness Back: Normal Inspection, No CVA Tenderness, No Vertebral Tenderness, No Paraspinal Tenderness Extremity: Normal ROM, No Tenderness, No Calf Tenderness, No Swelling Pulses: Left Dorsalis Pedis: Normal, Right Dorsalis Pedis: Normal Neurological/Psych: Oriented x3, Normal Speech, Normal Cognition, Normal Motor, Normal Sensation Past Patient History - Infectious Disease Hx of Infectious Diseases: None - Past Medical History & Family History Past Medical History?: Yes - Past Social History Smoking Status: Never Smoked - CARDIAC Hx Hypercholesterolemia: Yes Hx Hypertension: Yes - PULMONARY Hx Respiratory Disorders: No - NEUROLOGICAL Hx Neurological Disorder: Yes Hx Dizziness: Yes (last week) - HEENT Hx HEENT Problems: Yes Hx Cataracts: Yes Other/Comment: wear glasses for reading - RENAL Hx Chronic Kidney Disease: No - ENDOCRINE/METABOLIC Hx Endocrine Disorders: No - HEMATOLOGICAL/ONCOLOGICAL Hx Blood Disorders: No - INTEGUMENTARY Hx Dermatological Problems: No - MUSCULOSKELETAL/RHEUMATOLOGICAL Hx Arthritis: Yes Hx Osteoporosis: Yes - GASTROINTESTINAL Hx Gastrointestinal Disorders: No - GENITOURINARY/GYNECOLOGICAL Hx Genitourinary Disorders: No - PSYCHIATRIC Hx Anxiety: (???) Hx Substance Use: No - SURGICAL HISTORY Hx Surgeries: Yes Other/Comment: bilateral foot surgery. - ANESTHESIA Hx Anesthesia: Yes Hx Anesthesia Reactions: No Hx Malignant Hyperthermia: No Meds Allergies/Adverse Reactions: Allergies Allergy/AdvReac Type Severity Reaction Status Date / Time shellfish derived Allergy Verified 04/02/19 14:41 - Medications Medications: Current Medications Aspirin (Ecotrin) 81 mg PO DAILY [facility] Calcium Carbonate (Oscal) 500 mg PO DAILY [facility] Diphenhydramine HCl (Benadryl) 50 mg IVP 2100 [facility] Last Admin: 04/02/19 21:18 Dose: 50 mg Heparin Sodium (Porcine) (Heparin) 5,000 units SC Q8 [facility] Last Admin: 04/02/19 21:17 Dose: 5,000 units Metoprolol Tartrate (Lopressor) 25 mg PO DAILY [facility] Raloxifene HCl (Evista) 60 mg PO DAILY [facility] Rosuvastatin Calcium (Crestor) 5 mg PO HS [facility] Last Admin: 04/02/19 21:17 Dose: 5 mg Tramadol HCl (Ultram) 50 mg PO TID PRN PRN Reason: Pain, moderate (4-7) Results - Vital Signs Recent Vital Signs: Last Vital Signs Temp 98.9 F 04/02/19 14:44 Pulse 56 L 04/02/19 19:07 Resp 15 04/02/19 19:07 BP 123/64 04/02/19 19:07 Pulse Ox 98 04/02/19 19:07 - Labs Result Diagrams: 04/02/19 16:11 04/02/19 16:11 Labs: Laboratory Results - last 24 hr 04/02/19 04/02/19 04/02/19 16:11 16:11 16:11 WBC 7.7 RBC 4.43 Hgb 13.1 Hct 40.9 MCV 92.3 D MCH 29.7 MCHC 32.1 L RDW 13.3 Plt Count 301 MPV 7.8 Neut % (Auto) 68.9 Lymph % (Auto) 24.8 [place] % (Auto) 5.2 Eos % (Auto) 0.7 Baso % (Auto) 0.4 Neut # (Auto) 5.3 Lymph # (Auto) 1.9 [place] # (Auto) 0.4 Eos # (Auto) 0.1 Baso # (Auto) 0.0 PT 11.5 INR 1.1 APTT 32.0 Sodium 139 Potassium 4.1 Chloride 102 Carbon Dioxide 28 Anion Gap 12 BUN 18 H Creatinine 0.9 Est GFR ( Amer) > 60 Est GFR (Non-Af Amer) > 60 Random Glucose 97 D Calcium 10.1 Total Bilirubin 0.7 AST 17 ALT 11 Alkaline Phosphatase 81 Troponin I < 0.0120 NT-Pro-B Natriuret Pep 248 Total Protein 7.5 Albumin 4.1 Globulin 3.4 Albumin/Globulin Ratio 1.2 Urine Color Urine Clarity Urine pH Ur Specific [place] Urine Protein Urine Glucose (UA) Urine Ketones Urine Blood Urine Nitrate Urine Bilirubin Urine Urobilinogen Ur Leukocyte Esterase Urine WBC (Auto) Urine RBC (Auto) Ur Squamous Epith Cells 04/02/19 17:14 WBC RBC Hgb Hct MCV MCH MCHC RDW Plt Count MPV Neut % (Auto) Lymph % (Auto) [place] % (Auto) Eos % (Auto) Baso % (Auto) Neut # (Auto) Lymph # (Auto) [place] # (Auto) Eos # (Auto) Baso # (Auto) PT INR APTT Sodium Potassium Chloride Carbon Dioxide Anion Gap BUN Creatinine Est GFR ( Amer) Est GFR (Non-Af Amer) Random Glucose Calcium Total Bilirubin AST ALT Alkaline Phosphatase Troponin I NT-Pro-B Natriuret Pep Total Protein Albumin Globulin Albumin/Globulin Ratio Urine Color Yellow Urine Clarity Clear Urine pH 5.0 Ur Specific [place] 1.029 Urine Protein Negative Urine Glucose (UA) Normal Urine Ketones Trace Urine Blood Negative Urine Nitrate Negative Urine Bilirubin Negative Urine Urobilinogen Normal Ur Leukocyte Esterase 1+ H Urine WBC (Auto) 9 H Urine RBC (Auto) 1 Ur Squamous Epith Cells 1 Assessment & Plan - Assessment and Plan (Free Text) Assessment: Dyspnea s/p TAVR CAD ProBNP Normal Trop x 1 negative [place] ECHO Pulmonary consult Continue Home meds
[2019-04-02 23:23] LABS: CK-MB 0.33 ng/mL (0.0-3.38)
[2019-04-03 01:16] VITALS: RESP 20
[2019-04-03 07:06] LABS: BASO % 0.1 % (0.0-2.0); LYMPH # 0.7 K/uL (1.0-4.3); MEAN CELL VOLUME 90.6 fL (81.0-99.0); MEAN CORPUSCULAR HEMOGLOBIN 30.3 pg (27.0-31.0); MEAN CORPUSCULAR HGB CONC 33.5 g/dL (33.0-37.0); MEAN PLATELET VOLUME 7.8 fL (7.2-11.7); MONO # 0.1 K/uL (0.0-0.8); NEUT % 89.9 % (50.0-75.0); NRBC % 0.1 % (0.0-2.0); PLATELET COUNT 299 K/uL (130-400); RBC 4.28 Mil/uL (3.80-5.20); RED CELL DISTRIBUTION WIDTH 13.4 % (11.5-14.5); WHITE BLOOD COUNT 7.8 K/uL (4.8-10.8)
[2019-04-03 07:21] LABS: ALB/GLOB RATIO 1.2 (1.0-2.1); ALBUMIN 3.8 g/dL (3.5-5.0); ALT/SGPT 13 U/L (9-52); AST/SGOT 21 U/L (14-36); BLOOD UREA NITROGEN 17 mg/dL (7-17); CALCIUM 9.8 mg/dl (8.6-10.4); GFR NON-AFRICAN AMERICAN > 60
[2019-04-03 07:22] LABS: CK-MB 0.32 ng/mL (0.0-3.38)
[2019-04-03 10:30] LABS: LYMPHOCYTE 3 % (20-40); NEUTROPHIL 97 % (50-75); PLATELET ESTIMATE NORMAL (NORMAL); TOTAL CELLS COUNTED 100
--- NOTE | 2019-04-03 14:36 | CP.PCM.PN ---
<Charli Kapoor - Last Filed: 04/03/19 14:33> Subjective - Date & Time of Evaluation Date of Evaluation: 04/03/19 Time of Evaluation: 10:00 - Subjective Subjective: PGY2 Cardiology Note for Dr. Anders Patient seen and examined this morning at bedside. Patient is resting comfortably in bed. She is feeling well stating that she believes she was just very anxious after having her mammogram yesterday. She denies any chest pain, shortness of breath, lightheadedness or dizziness since admission. Objective - Vital Signs/Intake and Output Vital Signs (last 24 hours): Temp Pulse Resp BP Pulse Ox 97.7 F 83 20 112/69 97 04/03/19 07:59 04/03/19 07:59 04/03/19 07:59 04/03/19 09:13 04/03/19 07:59 - Medications Medications: Current Medications Aspirin (Ecotrin) 81 mg PO DAILY [facility] Last Admin: 04/03/19 09:13 Dose: 81 mg Calcium Carbonate (Oscal) 500 mg PO DAILY [facility] Last Admin: 04/03/19 09:13 Dose: 500 mg Diphenhydramine HCl (Benadryl) 50 mg IVP 2100 [facility] Last Admin: 04/02/19 21:18 Dose: 50 mg Heparin Sodium (Porcine) (Heparin) 5,000 units SC Q8 [facility] Last Admin: 04/03/19 13:28 Dose: 5,000 units Metoprolol Tartrate (Lopressor) 25 mg PO DAILY [facility] Last Admin: 04/03/19 09:13 Dose: 25 mg Raloxifene HCl (Evista) 60 mg PO DAILY [facility] Last Admin: 04/03/19 09:13 Dose: 60 mg Rosuvastatin Calcium (Crestor) 5 mg PO HS [facility] Last Admin: 04/02/19 21:17 Dose: 5 mg Tramadol HCl (Ultram) 50 mg PO TID PRN PRN Reason: Pain, moderate (4-7) - Labs Labs: 04/03/19 06:44 04/03/19 06:44 PT 11.5 SECONDS (9.7-12.2) 04/02/19 16:11 INR 1.1 04/02/19 16:11 APTT 32.0 SECONDS (21-34) 04/02/19 16:11 - Constitutional Appears: Non-toxic, No Acute Distress - Head Exam Head Exam: ATRAUMATIC, NORMOCEPHALIC - Eye Exam Eye Exam: Normal appearance - ENT Exam ENT Exam: Mucous Membranes Moist - Neck Exam Neck Exam: absent: Lymphadenopathy - Respiratory Exam Respiratory Exam: NORMAL BREATHING PATTERN. absent: Accessory Muscle Use, Rales, Rhonchi, Wheezes, Respiratory Distress - Cardiovascular Exam Cardiovascular Exam: REGULAR RHYTHM, +S1, Murmur (systolic) - GI/Abdominal Exam GI & Abdominal Exam: Soft. absent: Distended, Firm, Guarding, Rigid, Tenderness - Extremities Exam Extremities Exam: absent: Calf Tenderness, Pedal Edema - Neurological Exam Neurological Exam: Alert, Awake, Oriented x3 - Psychiatric Exam Psychiatric exam: Normal Affect, Normal Mood - Skin Skin Exam: Dry, Warm Assessment and Plan - Assessment and Plan (Free Text) Plan: Dyspnea Aortic Stenosis s/p TAVR CAD likely secondary to anxiety denies any chest pain or SOB since admission ECHO (04/02/19) is within normal limits - TAVR functioning appropriately Trop negative x3 BNP 248 continue current management Ascending Aortic Aneurysm - chronic CTA 04/02/19: shows stable ascending aortic aneurysm, 4.3cm x 4.6cm on prelim read * pending final report * patient is to continue to have annual monitoring of aneurysm. This was discussed with family member at bedside by Dr. Anders and Resident Emelia. continue current management DISPO: Acute shortness of breath is likely secondary to anxiety and is not cardiac in nature. f/u pulm recs. Stable for dc home from cardiac standpoint. Case discussed with Dr. Chago Augustin Emelia PGY2 <Ezequiel Anders - Last Filed: 04/03/19 23:00> Objective - Vital Signs/Intake and Output Vital Signs (last 24 hours): Temp Pulse Resp BP Pulse Ox 97.9 F 80 20 118/74 95 04/03/19 15:58 04/03/19 16:42 04/03/19 15:58 04/03/19 15:58 04/03/19 15:58 - Labs Labs: 04/03/19 06:44 04/03/19 06:44 PT 11.5 SECONDS (9.7-12.2) 04/02/19 16:11 INR 1.1 04/02/19 16:11 APTT 32.0 SECONDS (21-34) 04/02/19 16:11 Assessment and Plan - Assessment and Plan (Free Text) Plan: Patient seen and evaluated personally by me. Plan of care d/w the lpn medical assistant and as documented
--- NOTE | 2019-04-03 15:58 | CT ---
PROCEDURE: CT Angiography Chest, Abdomen and Pelvis with and without intravenous contrast HISTORY: SOB, r/o PE and AAA COMPARISON: CT angiogram chest 08/12/2018 TECHNIQUE: Contiguous axial images of the chest, abdomen and pelvis were obtained in the phase of aortic enhancement. A noncontrast enhanced CT of the chest was also obtained to evaluate for possible intramural thrombus. Coronal and sagittal reformats were generated. IV dose administered: 100 mL Visipaque 320 Radiation dose: Total exam DLP = 1233.35 mGy-cm. This CT exam was performed using one or more of the following dose reduction techniques: Automated exposure control, adjustment of the mA and/or kV according to patient size, and/or use of iterative reconstruction technique. FINDINGS: CT ANGIOGRAPHY OF THE CHEST WITH & WITHOUT CONTRAST: AORTA (CHEST AND ABDOMEN): There is aneurysmal dilatation of the ascending thoracic aorta to a diameter of approximately 4.3 cm. The aortic arch and descending thoracic aorta are normal in diameter. There is no evidence of thoracic or abdominal aortic dissection. There is no evidence of abdominal aortic aneurysm. There is atherosclerotic calcification of the thoracic and abdominal aorta. There is common origin of the splenic and hepatic arteries, bifurcating at the origin from the abdominal aorta. The left gastric artery originates from the abdominal aorta just superior to the celiac artery. The superior mesenteric artery is unremarkable. There are 2 right renal arteries and 2 left renal arteries. The pelvic arteries are unremarkable. LUNGS: There is a ground-glass density 6 mm nodule in the left apex seen on series 4, image 14. This is unchanged compared to the prior examination of 08/12/2018. no other pulmonary nodule is identified. As per Fleischner society criteria, this has been stable for a period of 6 months since 08/12/2018. A follow-up study is advised in 2 years and should be continued every 2 years out to a total of 5 years. There is no pulmonary infiltrate. MEDIASTINUM: Unremarkable. Normal caliber aorta and pulmonary arterial trunk. No aortic dissection. Normal size heart. There is an aortic endograft noted. There is a 9 mm nodule in the right lobe of the thyroid. Correlation with thyroid ultrasound examination is advised. There is a very small hiatal hernia noted. LYMPH NODES: Unremarkable. PLEURA: Unremarkable. No pneumothorax. No pleural fluid. BONES: Unremarkable. OTHER FINDINGS: None. CT ANGIOGRAPHY OF THE ABDOMEN AND PELVIS WITH CONTRAST: LIVER: Unremarkable. No gross lesion or ductal dilatation. GALLBLADDER AND BILE DUCTS: Unremarkable. PANCREAS: Unremarkable. No gross lesion or ductal dilatation. SPLEEN: Unremarkable. ADRENALS: Left renal mass containing a small amount of macroscopic fat, predominantly soft tissue density otherwise. This is consistent with a myelolipoma.. This measures 2.8 cm in greatest dimension. Unremarkable right adrenal gland. KIDNEYS AND URETERS: Unremarkable. No hydronephrosis. No solid mass. VASCULATURE: Unremarkable. No aortic aneurysm. There is atherosclerotic calcification of the abdominal aorta. STOMACH AND BOWEL: Unremarkable. No obstruction. No gross mural thickening. APPENDIX: Normal appendix. PERITONEUM: Unremarkable. No free fluid. No free air. LYMPH NODES: unremarkable. No enlarged lymph nodes. BLADDER: Unremarkable. REPRODUCTIVE: Thickened endometrium within the uterus for which correlation with transvaginal pelvic ultrasound is advised. The possibility of endometrial malignancy must be considered. BONES: No acute fracture. OTHER FINDINGS: None. IMPRESSION: Aneurysmal dilatation of the ascending thoracic aorta. No evidence of thoracic or abdominal aortic dissection. No evidence of abdominal aortic aneurysm. Variant abdominal aortic branch vessel anatomy. Incidental nodule in the right lobe of the thyroid. Correlate with thyroid ultrasound examination. 6 mm ground-glass nodule in the left pulmonary apex for which follow-up in [address] examination is advised. See above. Thickened endometrium for which correlation with transvaginal pelvic ultrasound examination is advised. Left adrenal myelolipoma.. Small hiatal hernia. The preliminary findings for this examination were reported by [facility] at 11:45 p.m. on 01/31/2019. There is concurrence of this report with the preliminary findings. High
--- NOTE | 2019-04-03 15:58 | CP.PCM.CON ---
History of Present Illness - History of Present Illness History of Present Illness: Reason for consultation: Shortness of breath 73-year-old female with history of aortic stenosis status post TAVR, osteoporosis, hyperlipidemia presented to emergency room with worsening shortness of breath. Denies cough, denies fever chills, denies chest pain. CT angio negative for central pulmonary embolism. PMH: dyslipidemia, osteoporosis, hypoglycemic episodes PSH: bunionectomy 2016, 2017, right breast cyst biopsy 2007 (benign), TAVR FHx: (+) history multiple family members with sudden cardiac (ages 50s- 60s) on Mother's side; Father of [place] at age 58, HTN, DM. No family history of cancers. Meds: Atorvastatin 10 mg daily, Indapamide 1.25 mg daily, Ralaxifine 60 mg daily, Fenofibrate 160 mg daily, Calcium, Vitamin D Allx: Seafood (shellfish) Social Hx: remote history of smoking at age 40 (2-3 cigs/day); social etoh use; no illicit drug use. Born in [place] immigrated to [facility] 2001. Review of Systems - Review of Systems All systems: reviewed and no additional remarkable complaints except (Shortness of breath) Past Patient History - Infectious Disease Hx of Infectious Diseases: None - Past Medical History & Family History Past Medical History?: Yes - Past Social History Smoking Status: Never Smoked - CARDIAC Hx Hypercholesterolemia: Yes Hx Hypertension: Yes - PULMONARY Hx Respiratory Disorders: No - NEUROLOGICAL Hx Neurological Disorder: Yes Hx Dizziness: Yes (last week) - HEENT Hx HEENT Problems: Yes Hx Cataracts: Yes Other/Comment: wear glasses for reading - RENAL Hx Chronic Kidney Disease: No - ENDOCRINE/METABOLIC Hx Endocrine Disorders: No - HEMATOLOGICAL/ONCOLOGICAL Hx Blood Disorders: No - INTEGUMENTARY Hx Dermatological Problems: No - MUSCULOSKELETAL/RHEUMATOLOGICAL Hx Arthritis: Yes - GASTROINTESTINAL Hx Gastrointestinal Disorders: No - GENITOURINARY/GYNECOLOGICAL Hx Genitourinary Disorders: No - PSYCHIATRIC Hx Anxiety: (???) Hx Substance Use: No - SURGICAL HISTORY Hx Surgeries: Yes Other/Comment: bilateral foot surgery. - ANESTHESIA Hx Anesthesia: Yes Hx Anesthesia Reactions: No Hx Malignant Hyperthermia: No Meds Allergies/Adverse Reactions: Allergies Allergy/AdvReac Type Severity Reaction Status Date / Time shellfish derived Allergy Verified 04/02/19 14:41 - Medications Medications: Current Medications Aspirin (Ecotrin) [address] [facility] Last Admin: 04/03/19 09:13 Dose: 81 mg Calcium Carbonate (Oscal) [address] [facility] Last Admin: 04/03/19 09:13 Dose: 500 mg Diphenhydramine HCl (Benadryl) [address] [facility] Last Admin: 04/02/19 21:18 Dose: 50 mg Docusate Sodium (Colace) [address] [facility] Heparin Sodium (Porcine) (Heparin) 5,[address] [facility] Last Admin: 04/03/19 13:28 Dose: 5,000 units Metoprolol Tartrate (Lopressor) [address] [facility] Last Admin: 04/03/19 09:13 Dose: 25 mg Raloxifene HCl (Evista) [address] [facility] Last Admin: 04/03/19 09:13 Dose: 60 mg Rosuvastatin Calcium (Crestor) [address] [facility] Last Admin: 04/02/19 21:17 Dose: 5 mg Tramadol HCl (Ultram) 50 mg PO TID PRN PRN Reason: Pain, moderate (4-7) Physical Exam - Head Exam Head Exam: ATRAUMATIC, NORMOCEPHALIC - Eye Exam Eye Exam: Normal appearance - ENT Exam ENT Exam: Mucous Membranes Moist - Neck Exam Neck exam: Positive for: Normal Inspection - Respiratory Exam Respiratory Exam: Clear to Auscultation Bilateral - Cardiovascular Exam Cardiovascular Exam: REGULAR RHYTHM - GI/Abdominal Exam GI & Abdominal Exam: Normal Bowel Sounds, Soft - Extremities Exam Extremities exam: Positive for: normal inspection Results - Vital Signs Recent Vital Signs: Last Vital Signs Temp 97.7 F 04/03/19 07:59 Pulse 83 04/03/19 07:59 Resp 20 04/03/19 07:59 BP 112/69 04/03/19 09:13 Pulse Ox 97 04/03/19 07:59 - Labs Result Diagrams: 04/03/19 06:44 04/03/19 06:44 Labs: Laboratory Results - last 24 hr 04/02/19 04/02/19 04/02/19 16:11 16:11 16:11 WBC 7.7 RBC 4.43 Hgb 13.1 Hct 40.9 MCV 92.3 D MCH 29.7 MCHC 32.1 L RDW 13.3 Plt Count 301 MPV 7.8 Neut % (Auto) 68.9 Lymph % (Auto) 24.8 [place] % (Auto) 5.2 Eos % (Auto) 0.7 Baso % (Auto) 0.4 Neut # (Auto) 5.3 Lymph # (Auto) 1.9 [place] # (Auto) 0.4 Eos # (Auto) 0.1 Baso # (Auto) 0.0 Neutrophils % (Manual) Lymphocytes % (Manual) Monocytes % (Manual) Platelet Estimate RBC Morphology PT 11.5 INR 1.1 APTT 32.0 Sodium 139 Potassium 4.1 Chloride 102 Carbon Dioxide 28 Anion Gap 12 BUN 18 H Creatinine 0.9 Est GFR ( Amer) > 60 Est GFR (Non-Af Amer) > 60 Random Glucose 97 D Calcium 10.1 Phosphorus Magnesium Total Bilirubin 0.7 AST 17 ALT 11 Alkaline Phosphatase 81 Total Creatine Kinase CK-MB (Mass) Troponin I < 0.0120 NT-Pro-B Natriuret Pep 248 Total Protein 7.5 Albumin 4.1 Globulin 3.4 Albumin/Globulin Ratio 1.2 Urine Color Urine Clarity Urine pH Ur Specific [place] Urine Protein Urine Glucose (UA) Urine Ketones Urine Blood Urine Nitrate Urine Bilirubin Urine Urobilinogen Ur Leukocyte Esterase Urine WBC (Auto) Urine RBC (Auto) Ur Squamous Epith Cells 04/02/19 04/02/19 04/03/19 17:14 22:55 06:44 WBC 7.8 RBC 4.28 Hgb 13.0 Hct 38.8 MCV 90.6 MCH 30.3 MCHC 33.5 RDW 13.4 Plt Count 299 MPV 7.8 Neut % (Auto) 89.9 H Lymph % (Auto) 9.0 L [place] % (Auto) 1.0 Eos % (Auto) 0.0 Baso % (Auto) 0.1 Neut # (Auto) 7.0 Lymph # (Auto) 0.7 L [place] # (Auto) 0.1 Eos # (Auto) 0.0 Baso # (Auto) 0.0 Neutrophils % (Manual) 97 H Lymphocytes % (Manual) 3 L Monocytes % (Manual) TEST NOT PERFORMED Platelet Estimate Normal RBC Morphology Normal PT INR APTT Sodium Potassium Chloride Carbon Dioxide Anion Gap BUN Creatinine Est GFR ( Amer) Est GFR (Non-Af Amer) Random Glucose Calcium Phosphorus Magnesium Total Bilirubin AST ALT Alkaline Phosphatase Total Creatine Kinase 36 CK-MB (Mass) 0.33 Troponin I < 0.0120 NT-Pro-B Natriuret Pep Total Protein Albumin Globulin Albumin/Globulin Ratio Urine Color Yellow Urine Clarity Clear Urine pH 5.0 Ur Specific [place] 1.029 Urine Protein Negative Urine Glucose (UA) Normal Urine Ketones Trace Urine Blood Negative Urine Nitrate Negative Urine Bilirubin Negative Urine Urobilinogen Normal Ur Leukocyte Esterase 1+ H Urine WBC (Auto) 9 H Urine RBC (Auto) 1 Ur Squamous Epith Cells 1 04/03/19 06:44 WBC RBC Hgb Hct MCV MCH MCHC RDW Plt Count MPV Neut % (Auto) Lymph % (Auto) [place] % (Auto) Eos % (Auto) Baso % (Auto) Neut # (Auto) Lymph # (Auto) [place] # (Auto) Eos # (Auto) Baso # (Auto) Neutrophils % (Manual) Lymphocytes % (Manual) Monocytes % (Manual) Platelet Estimate RBC Morphology PT INR APTT Sodium 142 Potassium 4.4 Chloride 107 Carbon Dioxide 27 Anion Gap 13 BUN 17 Creatinine 0.8 Est GFR ( Amer) > 60 Est GFR (Non-Af Amer) > 60 Random Glucose 136 H D Calcium 9.8 Phosphorus 2.7 Magnesium 2.2 Total Bilirubin 0.8 AST 21 ALT 13 Alkaline Phosphatase 78 Total Creatine Kinase 55 CK-MB (Mass) 0.32 Troponin I < 0.0120 NT-Pro-B Natriuret Pep Total Protein 7.1 Albumin 3.8 Globulin 3.3 Albumin/Globulin Ratio 1.2 Urine Color Urine Clarity Urine pH Ur Specific [place] Urine Protein Urine Glucose (UA) Urine Ketones Urine Blood Urine Nitrate Urine Bilirubin Urine Urobilinogen Ur Leukocyte Esterase Urine WBC (Auto) Urine RBC (Auto) Ur Squamous Epith Cells Assessment & Plan (1) Aortic stenosis Assessment and Plan: Status post TAVR Stable from pulmonary standpoint Pending official CT angios report No pulmonary work-up Status: Acute (2) SOB (shortness of breath) Status: Acute
[2019-04-03 16:00] VITALS: BP 118/74; PULSE 80; TEMP 97.9; O2SAT 95
--- NOTE | 2019-04-03 16:50 | CP.PCM.DIS ---
<Gerald Shelton - Last Filed: 04/03/19 18:12> Provider - Provider Date of Admission: 04/02/19 18:13 Attending physician: Samuel Brownlee MD Primary care physician: Dr. Banks Consults: 04/02/19 18:15 Cardiology Consult Routine Comment: ISAAC Apodaca spoke to Chago meeks Consulting Provider: Ezequiel Anders Consulting Physician: Ezequiel Anders Reason for Consult: hx of AAA, SOB, 04/02/19 21:34 Pulmonology Consult Routine Comment: Consulting Provider: Greg Garcia Consulting Physician: Greg Garcia Reason for Consult: SOB Time Spent in preparation of Discharge (in minutes): 35 Diagnosis - Discharge Diagnosis (1) S/P TAVR (transcatheter aortic valve replacement) Status: Chronic (2) HLD (hyperlipidemia) Status: Chronic (3) Thyroid nodule Status: Chronic (4) Pulmonary nodule Status: Chronic (5) Aortic stenosis Status: Chronic (6) Ascending aortic aneurysm Status: Chronic (7) SOB (shortness of breath) Status: Resolved Hospital Course - Lab Results Lab Results: Most Recent Lab Values WBC 7.8 K/uL (4.8-10.8) 04/03/19 06:44 RBC 4.28 Mil/uL (3.80-5.20) 04/03/19 06:44 Hgb 13.0 g/dL (11.0-16.0) 04/03/19 06:44 Hct 38.8 % (34.0-47.0) 04/03/19 06:44 MCV 90.6 fL (81.0-99.0) 04/03/19 06:44 MCH 30.3 pg (27.0-31.0) 04/03/19 06:44 MCHC 33.5 g/dL (33.0-37.0) 04/03/19 06:44 RDW 13.4 % (11.5-14.5) 04/03/19 06:44 Plt Count 299 K/uL (130-400) 04/03/19 06:44 MPV 7.8 fL (7.2-11.7) 04/03/19 06:44 Neut % (Auto) 89.9 % (50.0-75.0) H 04/03/19 06:44 Lymph % (Auto) 9.0 % (20.0-40.0) L 04/03/19 06:44 [place] % (Auto) 1.0 % (0.0-10.0) 04/03/19 06:44 Eos % (Auto) 0.0 % (0.0-4.0) 04/03/19 06:44 Baso % (Auto) 0.1 % (0.0-2.0) 04/03/19 06:44 Neut # (Auto) 7.0 K/uL (1.8-7.0) 04/03/19 06:44 Lymph # (Auto) 0.7 K/uL (1.0-4.3) L 04/03/19 06:44 [place] # (Auto) 0.1 K/uL (0.0-0.8) 04/03/19 06:44 Eos # (Auto) 0.0 K/uL (0.0-0.7) 04/03/19 06:44 Baso # (Auto) 0.0 K/uL (0.0-0.2) 04/03/19 06:44 Neutrophils % (Manual) 97 % (50-75) H 04/03/19 06:44 Lymphocytes % (Manual) 3 % (20-40) L 04/03/19 06:44 Monocytes % (Manual) TEST NOT PERFORMED 04/03/19 06:44 Platelet Estimate Normal (NORMAL) 04/03/19 06:44 RBC Morphology Normal 04/03/19 06:44 PT 11.5 SECONDS (9.7-12.2) 04/02/19 16:11 INR 1.1 04/02/19 16:11 APTT 32.0 SECONDS (21-34) 04/02/19 16:11 Sodium 142 mmol/L (132-148) 04/03/19 06:44 Potassium 4.4 mmol/L (3.6-5.2) 04/03/19 06:44 Chloride 107 mmol/L (98-107) 04/03/19 06:44 Carbon Dioxide 27 mmol/L (22-30) 04/03/19 06:44 Anion Gap 13 (10-20) 04/03/19 06:44 BUN 17 mg/dL (7-17) 04/03/19 06:44 Creatinine 0.8 mg/dL (0.7-1.2) 04/03/19 06:44 Est GFR ( Amer) > 60 04/03/19 06:44 Est GFR (Non-Af Amer) > 60 04/03/19 06:44 Random Glucose 136 mg/dL (65-105) H D 04/03/19 06:44 Calcium 9.8 mg/dl (8.6-10.4) 04/03/19 06:44 Phosphorus 2.7 mg/dL (2.5-4.5) 04/03/19 06:44 Magnesium 2.2 mg/dL (1.6-2.3) 04/03/19 06:44 Total Bilirubin 0.8 mg/dL (0.2-1.3) 04/03/19 06:44 AST 21 U/L (14-36) 04/03/19 06:44 ALT 13 U/L (9-52) 04/03/19 06:44 Alkaline Phosphatase 78 U/L (38-126) 04/03/19 06:44 Total Creatine Kinase 55 U/L (30-135) 04/03/19 06:44 CK-MB (Mass) 0.32 ng/mL (0.0-3.38) 04/03/19 06:44 Troponin I < 0.0120 ng/mL (0.00-0.120) 04/03/19 06:44 NT-Pro-B Natriuret Pep 248 pg/mL (0-900) 04/02/19 16:11 Total Protein 7.1 g/dL (6.3-8.3) 04/03/19 06:44 Albumin 3.8 g/dL (3.5-5.0) 04/03/19 06:44 Globulin 3.3 gm/dL (2.2-3.9) 04/03/19 06:44 Albumin/Globulin Ratio 1.2 (1.0-2.1) 04/03/19 06:44 Urine Color Yellow (YELLOW) 04/02/19 17:14 Urine Clarity Clear (Clear) 04/02/19 17:14 Urine pH 5.0 (5.0-8.0) 04/02/19 17:14 Ur Specific [place]ck[place] 1.029 (1.003-1.030) 04/02/19 17:14 Urine Protein Negative mg/dL (NEGATIVE) 04/02/19 17:14 Urine Glucose (UA) Normal mg/dL (Normal) 04/02/19 17:14 Urine Ketones Trace mg/dL (NEGATIVE) 04/02/19 17:14 Urine Blood Negative (NEGATIVE) 04/02/19 17:14 Urine Nitrate Negative (NEGATIVE) 04/02/19 17:14 Urine Bilirubin Negative (NEGATIVE) 04/02/19 17:14 Urine Urobilinogen Normal mg/dL (0.2-1.0) 04/02/19 17:14 Ur Leukocyte Esterase 1+ Bladimir/uL (Negative) H 04/02/19 17:14 Urine WBC (Auto) 9 /hpf (0-5) H 04/02/19 17:14 Urine RBC (Auto) 1 /hpf (0-3) 04/02/19 17:14 Ur Squamous Epith Cells 1 /hpf (0-5) 04/02/19 17:14 - Hospital Course Hospital Course: HPI at time of admission: "73F PMHx of aortic stenosis with TAVR (Sep) and a cyst on her spine, who presents to the ED with her daughter for evaluation of worsening SOB. Pt says it was an acute onset after a her mammogram. Pt thinks she got nervous and began panic. Reports getting worried over the mammogram. Pt says she gets worried a lot and that she gets anxiety for the past 50 years. She does however say she has had dyspnea on exertion for the past 2 years or so. Pt was supposed to see Dr Banks tmrw but was told to go to the ER by her daughter. Pt follows up regulary with PMD and Cardio, compliant w/ home meds." Hospital Course: Pt was admitted for management of shortness of breath and dyspnea on exertion. Dr. Garcia (Pulmonology) and Dr. Anders (Cardiology) were consulted, who recommended no acute management or further work-up of symptoms inpatient. EKG demonstrated L anterior fascicular block. CT angio chest/abd demonstrated stable aortic aneurysm unchanged from prior study in Aug 2018. Recommend pt f/u in [address] chest/abd to monitor size of aneurysm. Also demonstrated thyroid nodule, recommended f/u with PCP for thyroid U/s on outpatient basis. Also noted pulmonary nodule 6 mm in size, due to pt remote smoking hx recommed repeat CT chest in 6-12 mos on outpatient basis for surveillance. Echo demonstrated no acute findings as per Cardiology. Pt was discharged to home in stable condition on 04/03/19 and instructed to f/u with Dr. Banks (PCP) and Dr. Anders (Cardiology) after d/c. All questions and concerns were addressed with pt and pt's daughter at bedside and both were agreeable to plan. This is a summary of the hospital course. For further details, please refer to the hospital EMR. Discharge Exam - Head Exam Head Exam: ATRAUMATIC, NORMOCEPHALIC - Eye Exam Eye Exam: EOMI, Normal appearance, PERRL - ENT Exam ENT Exam: Mucous Membranes Moist - Respiratory Exam Respiratory Exam: Clear to PA & Lateral, NORMAL BREATHING PATTERN, UNREMARKABLE - Cardiovascular Exam Cardiovascular Exam: REGULAR RHYTHM, +S1, +S2 - GI/Abdominal Exam GI & Abdominal Exam: Normal Bowel Sounds, Soft, Unremarkable - Extremities Exam Extremities exam: full ROM, normal capillary refill, normal inspection, pedal pulses present - Neurological Exam Neurological exam: Alert, CN II-XII Intact, Normal Gait, Oriented x3, Reflexes Normal - Skin Skin Exam: Dry, Intact, Warm Discharge Plan - Follow Up Plan Condition: STABLE Disposition: HOME/ ROUTINE Instructions: Heart Healthy Diet, Shortness of Breath (Dyspnea) (DC), Chest Pain (DC) Additional Instructions: Please follow-up with your primary care doctor (Dr. Banks) within 2-3 days of hospital discharge. Please follow-up with Dr. Anders (Cardiology) in [address] chest/abdomen angiogram to follow size of your aneurysm. With this test you can also be checked to assess the size of your pulmonary nodule. Please follow-up with your primary doctor for thyroid ultrasound for your thyroid nodule. Please resume home medications as prescribed. Please establish care with a psychologist for talk therapy to manage your generalized anxiety. Should your symptoms worsen, please call your primary care physician or report to your nearest emergency department. Referrals: Ezequiel Anders MD [Staff Provider] - Kareem Banks MD [Staff Provider] - <Samuel Brownlee - Last Filed: 04/03/19 19:18> Provider - Provider Date of Admission: 04/02/19 18:13 Attending physician: Samuel Brownlee MD Consults: 04/02/19 18:15 Cardiology Consult Routine Comment: ISAAC Apodaca spoke to Chago meeks Consulting Provider: Ezequiel Anders Consulting Physician: Ezequiel Anders Reason for Consult: hx of AAA, SOB, 04/02/19 21:34 Pulmonology Consult Routine Comment: Consulting Provider: Greg Garcia Consulting Physician: Greg Garcia Reason for Consult: SOB Hospital Course - Lab Results Lab Results: Most Recent Lab Values WBC 7.8 K/uL (4.8-10.8) 04/03/19 06:44 RBC 4.28 Mil/uL (3.80-5.20) 04/03/19 06:44 Hgb 13.0 g/dL (11.0-16.0) 04/03/19 06:44 Hct 38.8 % (34.0-47.0) 04/03/19 06:44 MCV 90.6 fL (81.0-99.0) 04/03/19 06:44 MCH 30.3 pg (27.0-31.0) 04/03/19 06:44 MCHC 33.5 g/dL (33.0-37.0) 04/03/19 06:44 RDW 13.4 % (11.5-14.5) 04/03/19 06:44 Plt Count 299 K/uL (130-400) 04/03/19 06:44 MPV 7.8 fL (7.2-11.7) 04/03/19 06:44 Neut % (Auto) 89.9 % (50.0-75.0) H 04/03/19 06:44 Lymph % (Auto) 9.0 % (20.0-40.0) L 04/03/19 06:44 [place] % (Auto) 1.0 % (0.0-10.0) 04/03/19 06:44 Eos % (Auto) 0.0 % (0.0-4.0) 04/03/19 06:44 Baso % (Auto) 0.1 % (0.0-2.0) 04/03/19 06:44 Neut # (Auto) 7.0 K/uL (1.8-7.0) 04/03/19 06:44 Lymph # (Auto) 0.7 K/uL (1.0-4.3) L 04/03/19 06:44 [place] # (Auto) 0.1 K/uL (0.0-0.8) 04/03/19 06:44 Eos # (Auto) 0.0 K/uL (0.0-0.7) 04/03/19 06:44 Baso # (Auto) 0.0 K/uL (0.0-0.2) 04/03/19 06:44 Neutrophils % (Manual) 97 % (50-75) H 04/03/19 06:44 Lymphocytes % (Manual) 3 % (20-40) L 04/03/19 06:44 Monocytes % (Manual) TEST NOT PERFORMED 04/03/19 06:44 Platelet Estimate Normal (NORMAL) 04/03/19 06:44 RBC Morphology Normal 04/03/19 06:44 PT 11.5 SECONDS (9.7-12.2) 04/02/19 16:11 INR 1.1 04/02/19 16:11 APTT 32.0 SECONDS (21-34) 04/02/19 16:11 Sodium 142 mmol/L (132-148) 04/03/19 06:44 Potassium 4.4 mmol/L (3.6-5.2) 04/03/19 06:44 Chloride 107 mmol/L (98-107) 04/03/19 06:44 Carbon Dioxide 27 mmol/L (22-30) 04/03/19 06:44 Anion Gap 13 (10-20) 04/03/19 06:44 BUN 17 mg/dL (7-17) 04/03/19 06:44 Creatinine 0.8 mg/dL (0.7-1.2) 04/03/19 06:44 Est GFR ( Amer) > 60 04/03/19 06:44 Est GFR (Non-Af Amer) > 60 04/03/19 06:44 Random Glucose 136 mg/dL (65-105) H D 04/03/19 06:44 Calcium 9.8 mg/dl (8.6-10.4) 04/03/19 06:44 Phosphorus 2.7 mg/dL (2.5-4.5) 04/03/19 06:44 Magnesium 2.2 mg/dL (1.6-2.3) 04/03/19 06:44 Total Bilirubin 0.8 mg/dL (0.2-1.3) 04/03/19 06:44 AST 21 U/L (14-36) 04/03/19 06:44 ALT 13 U/L (9-52) 04/03/19 06:44 Alkaline Phosphatase 78 U/L (38-126) 04/03/19 06:44 Total Creatine Kinase 55 U/L (30-135) 04/03/19 06:44 CK-MB (Mass) 0.32 ng/mL (0.0-3.38) 04/03/19 06:44 Troponin I < 0.0120 ng/mL (0.00-0.120) 04/03/19 06:44 NT-Pro-B Natriuret Pep 248 pg/mL (0-900) 04/02/19 16:11 Total Protein 7.1 g/dL (6.3-8.3) 04/03/19 06:44 Albumin 3.8 g/dL (3.5-5.0) 04/03/19 06:44 Globulin 3.3 gm/dL (2.2-3.9) 04/03/19 06:44 Albumin/Globulin Ratio 1.2 (1.0-2.1) 04/03/19 06:44 Urine Color Yellow (YELLOW) 04/02/19 17:14 Urine Clarity Clear (Clear) 04/02/19 17:14 Urine pH 5.0 (5.0-8.0) 04/02/19 17:14 Ur Specific [place] 1.029 (1.003-1.030) 04/02/19 17:14 Urine Protein Negative mg/dL (NEGATIVE) 04/02/19 17:14 Urine Glucose (UA) Normal mg/dL (Normal) 04/02/19 17:14 Urine Ketones Trace mg/dL (NEGATIVE) 04/02/19 17:14 Urine Blood Negative (NEGATIVE) 04/02/19 17:14 Urine Nitrate Negative (NEGATIVE) 04/02/19 17:14 Urine Bilirubin Negative (NEGATIVE) 04/02/19 17:14 Urine Urobilinogen Normal mg/dL (0.2-1.0) 04/02/19 17:14 Ur Leukocyte Esterase 1+ Bladimir/uL (Negative) H 04/02/19 17:14 Urine WBC (Auto) 9 /hpf (0-5) H 04/02/19 17:14 Urine RBC (Auto) 1 /hpf (0-3) 04/02/19 17:14 Ur Squamous Epith Cells 1 /hpf (0-5) 04/02/19 17:14 Attending/Attestation - Attestation I have personally seen and examined this patient.: Yes I have fully participated in the care of the patient.: Yes I have reviewed all pertinent clinical information, including history, physical exam and plan: Yes Notes (Text): 04/03/19 19:17 Patient was seen and examined with resident Dr. Shelton All discharge instructions were thoroughly gone over with the patient's daughter who was at bedside. Samuel Brownlee D.O.
--- NOTE | 2019-04-03 17:13 | CARD ---
APPROVED REPORT Date of service: 04/03/2019 EXAM: Two-dimensional and M-mode echocardiogram with Doppler and color Doppler. Other Information Technically limited study due to smoking.body habitus. INDICATION Dyspnea s/p TAVR , PALPITATIONS 2D DIMENSIONS IVSd0.8 (0.7-1.1cm)LVDd4.5 (3.9-5.9cm) PWd0.9 (0.7-1.1cm)LA Pqissv38 (18-58mL) LVDs2.5 (2.5-4.0cm)FS (%) 45.0 % LVEF (%)75.0 (>50%)LVEF ([facility])70.17 % IVC0.00 cm M-Mode DIMENSIONS Left Atrium (MM)3.46 (2.5-4.0cm)IVSd0.98 (0.7-1.1cm) Aortic Root3.23 (2.2-3.7cm)LVDd5.27 (4.0-5.6cm) Aortic Cusp Exc.1.54 (1.5-2.0cm)PWd1.07 (0.7-1.1cm) FS (%) 54 %LVDs2.44 (2.0-3.8cm) LVEF (%)72 (>50%) Aortic Valve AoV Peak Iaeksvfh498.2cm/sAoV VTI35.8cmAO Peak GR.13mmHg AO Mean GR.7mmHgAI P 1/2 Tqgl810pa Mitral Valve MV E Qagslhko38.9cm/sMV A Nvkiplfw495.1cm/sE/A ratio0.8 ESER816.72 cm/s TDI Lateral E' Peak V5.45cm/sMedial E' Peak V5.77cm/sE/Lateral E'15.0 E/Medial E'14.2 Tricuspid Valve TR Peak Escdobup734hz/sTR Peak Gr.60gzWgEXKP72huXj LEFT VENTRICLE The left ventricle is normal size. There is normal left ventricular wall thickness. The left ventricular function is normal. The left ventricular ejection fraction is within the normal range. There is normal LV segmental wall motion. Transmitral Doppler flow pattern is abnormal. RIGHT VENTRICLE The right ventricle is normal size. ATRIA The left atrium size is normal. The right atrium size is normal. AORTIC VALVE There is mild aortic regurgitation. MITRAL VALVE Mitral regurgitation is trace. TRICUSPID VALVE There is trace tricuspid regurgitation. <Conclusion> Normal LV systolic function. Diastolic dysfunction. Normal chamber size. Mild AR. Trace MR. Trace to mild TR.
== END 2019-04-03 17:46 | disposition home or self-care (01) | DRG 307 ==
LOC: C.ER 14:30 → C.9E 18:13 → C.5S 18:58
PROVIDERS: ADMIT Family Medicine; ATTEND Family Medicine
DX: I35.0 Nonrheumatic aortic (valve) stenosis (principal); M54.32 Sciatica, left side; I25.10 Atherosclerotic heart disease of native coronary artery without angina pectoris; I10 Essential (primary) hypertension; F41.9 Anxiety disorder, unspecified; E78.5 Hyperlipidemia, unspecified; E04.1 Nontoxic single thyroid nodule; Z82.49 Family history of ischemic heart disease and other diseases of the circulatory system; Z95.2 Presence of prosthetic heart valve; Z87.891 Personal history of nicotine dependence; I71.4 Abdominal aortic aneurysm, without rupture